=== PATIENT | male | born 1945 | race Caucasian/White ===

== ENCOUNTER → 2019-12-14 11:40 | Outpatient (BNVA) | payer OTHER, SELFPAY | PROVIDERS: PCP Internal Medicine; Referring Provider Internal Medicine; Visit Provider Internal Medicine | DX: I26.99 Other pulmonary embolism without acute cor pulmonale (principal); Z51.81 Encounter for therapeutic drug level monitoring; Z79.01 Long term (current) use of anticoagulants | CPT/HCPCS: 85610; 99211 ==

== ENCOUNTER 2020-03-27 10:57 | Outpatient (REF) | payer OTHER, SELFPAY ==
[2020-03-27 13:14] LABS: Prostate Specific Antigen 0.13 ng/mL (<0.05-4.0)
== END 2020-03-27 10:58 | disposition home or self-care (01) ==
LOC: HO.HSHHMC 10:57
PROVIDERS: Visit Provider Physician Assistant Surgical
DX: C61 Malignant neoplasm of prostate (principal)
CPT/HCPCS: 36415; 84153

== ENCOUNTER 2020-09-23 10:24 | Outpatient (REF) | payer OTHER, SELFPAY ==
[2020-09-23 12:20] LABS: Prostate Specific Antigen 0.11 ng/mL (<0.05-4.0)
== END 2020-09-23 10:25 | disposition home or self-care (01) ==
LOC: HO.10HDLNP 10:24
PROVIDERS: Visit Provider Urology
DX: C61 Malignant neoplasm of prostate (principal)
CPT/HCPCS: 84153

== ENCOUNTER 2020-12-16 14:46 | Outpatient (REF) | payer OTHER, SELFPAY ==
--- NOTE | ~2020-12-16 | US_ITS ---
EXAMINATION: US VENOUS ULTRASOUND WITH DOPPLER LOWER EXTREMITY, LEFT CLINICAL INFORMATION: Swelling COMPARISON: None TECHNIQUE: Ultrasound of the deep veins is performed from the hip to the calf with compression sonography and color and pulse Doppler assessment. Spectral analysis with color-flow imaging is performed. FINDINGS: There is normal venous compression and respiratory variation and augmented flow. The visualized common femoral vein, superficial femoral vein, profunda femoral vein, popliteal vein, and the trifurcation region shows no evidence of deep venous thrombosis. There is no popliteal fossa cyst. US/US venous duplex LE LT IMPRESSION: No DVT demonstrated in the left lower extremity.
== END 2020-12-16 14:47 | disposition home or self-care (01) ==
LOC: HO.US 14:46
PROVIDERS: PCP Internal Medicine; Visit Provider Internal Medicine
DX: R60.0 Localized edema (principal)
CPT/HCPCS: 93971

== ENCOUNTER 2021-02-02 11:59 | Outpatient (REF) | payer OTHER, SELFPAY ==
--- NOTE | ~2021-02-02 | XR_ITS ---
EXAMINATION: XR knee LT 2V, XR knee standing BI CLINICAL INFORMATION: Reason for Exam M25.569 - Pain in unspecified knee COMPARISON: None available at the time of this dictation. TECHNIQUE: frontal, lateral, tunnel and patella sunrise views FINDINGS: BONES: No fracture or dislocation is present. JOINTS: Narrowing of joint spaces and developed osteophytes from the edges of articular surfaces suggest degenerative osteoarthritis. SOFT TISSUE: There are vascular calcifications. XR/XR knee LT 2V IMPRESSION: Moderate degenerative osteoarthritis involving medial more than lateral compartments right more than left knee. No significant knee joint effusion. There are vascular calcifications.
--- NOTE | ~2021-02-02 | XR_ITS ---
EXAMINATION: XR knee LT 2V, XR knee standing BI CLINICAL INFORMATION: Reason for Exam M25.569 - Pain in unspecified knee COMPARISON: None available at the time of this dictation. TECHNIQUE: frontal, lateral, tunnel and patella sunrise views FINDINGS: BONES: No fracture or dislocation is present. JOINTS: Narrowing of joint spaces and developed osteophytes from the edges of articular surfaces suggest degenerative osteoarthritis. SOFT TISSUE: There are vascular calcifications. XR/XR knee standing BI IMPRESSION: Moderate degenerative osteoarthritis involving medial more than lateral compartments right more than left knee. No significant knee joint effusion. There are vascular calcifications.
--- NOTE | ~2021-02-02 | XR_ITS ---
EXAMINATION: XR PELVIS CLINICAL INFORMATION: Pain COMPARISON: 09/05/2018 TECHNIQUE: AP view of the pelvis. FINDINGS: No acute fracture or dislocation. Femoral heads are spherical. Small bilateral acetabular marginal osteophytes. Mild bilateral sacroiliac arthrosis. Degenerative changes of the imaged lower lumbar spine. No suspicious osseous lesions. Soft tissues unremarkable. XR/XR pelvis 1-2V IMPRESSION: No acute findings. Degenerative changes as described.
== END 2021-02-02 12:00 | disposition home or self-care (01) ==
LOC: HO.HOSX 11:59
PROVIDERS: PCP Internal Medicine; Visit Provider Orthopaedic Surgery
DX: M17.0 Bilateral primary osteoarthritis of knee (principal); M25.552 Pain in left hip
CPT/HCPCS: 72170; 73560; 73565

== ENCOUNTER 2021-04-14 05:41 | Outpatient (REF) | payer OTHER, SELFPAY ==
[2021-04-14 10:53] LABS: MANUAL DIFF FLAG NO
[2021-04-14 10:56] LABS: Basophils Absolute Auto 0.1 X10*3/uL (0.0-0.2); Basophils Percent Auto 0.7 % (0-2); Eosinophils Absolute Auto 0.2 X10*3/uL (0.0-0.4); Eosinophils Percent Auto 2.2 % (0-4); Hematocrit 48.1 % (42.0-52.0); Hemoglobin 15.7 g/dl (14.0-18.0); Imm Gran Abs Auto 0.02 X10*3/uL (0.00-0.03); Imm Gran Pct Auto 0.3 % (0.0-0.4); Lymphocytes Absolute Auto 1.4 X10*3/uL (1.2-4.9); Lymphocytes Percent Auto 21.2 % (20-40); Mean Corpuscular HGB Conc 32.6 g/dl (31.0-36.0); Mean Corpuscular Hemoglobin 31.2 pg (27.0-33.0); Mean Corpuscular Volume 95.4 fL (80.0-98.0); Mean Platelet Volume 10.3 fL (9.4-12.4); Monocytes Absolute Auto 0.5 X10*3/uL (0.1-1.2); Monocytes Percent Auto 7.5 % (2-11); Neutrophils Absolute Auto 4.6 x10*3/uL (2.0-8.3); Neutrophils Percent Auto 68.1 % (45-73); Platelet Count 272 X10*3/uL (160-400); Red Blood Count 5.04 X10*6/uL (4.60-5.80); Red Cell Distribution Width 13.2 % (11.0-16.0); White Blood Count 6.7 X10*3/uL (4.8-10.8)
[2021-04-14 11:31] LABS: Alanine Aminotransferase 14 U/L (0-40); Alkaline Phosphatase 84 U/L (39-117); Anion Gap 10 (12-20); Aspartate Amino Transferase 16 U/L (5-37); Blood Urea Nitrogen 15 mg/dL (9-16); Calcium 9.4 mg/dL (8.4-10.2); Carbon Dioxide 28 mmol/L (22-29); Chloride 106 mmol/L (96-108); Cholesterol 196 mg/dL; Estimated Glomerular Filt Rate 57; Glucose Fasting 90 mg/dL (60-99); HDL Cholesterol 44 mg/dL; LDL Cholesterol Calculated 133 mg/dl; Potassium 4.3 mmol/L (3.3-5.1); Sodium 140 mmol/L (135-145); Total Protein 6.6 g/dL (6.5-8.0); Triglycerides 99 mg/dL
[2021-04-14 11:51] LABS: Prostate Specific Antigen Scr 0.14 ng/mL (<0.05-4.0); Thyroid Stimulating Hormone 1.59 uIU/mL (0.32-4.0)
== END 2021-04-14 05:42 | disposition home or self-care (01) ==
LOC: HO.HSH 05:41
PROVIDERS: Psychiatry & Neurology Child & Adolescent Psychiatry; Visit Provider Internal Medicine
DX: Z00.00 Encounter for general adult medical examination without abnormal findings (principal); Z13.0 Encounter for screening for diseases of the blood and blood-forming organs and certain disorders involving the immune mechanism; Z12.5 Encounter for screening for malignant neoplasm of prostate; C61 Malignant neoplasm of prostate
CPT/HCPCS: 36415; 80053; 80061; 84153; 84443; 85025

== ENCOUNTER → 2021-04-24 11:25 | Outpatient (BNVA) | payer OTHER, SELFPAY | PROVIDERS: PCP Internal Medicine; Visit Provider Orthopaedic Surgery | DX: M17.12 Unilateral primary osteoarthritis, left knee (principal) | CPT/HCPCS: 20610; J1100 ==

== ENCOUNTER 2021-05-12 13:00 | Outpatient (RCR) | payer OTHER, SELFPAY ==
--- NOTE | 2021-02-17 15:44 | MHC.PT.EP ---
[facility] [place] Office [place] Office [place] Office [address] Ina Vaughn [address] [phone] F: [phone] F: [phone] F: [phone] F: [phone] Physical Therapy Plan of Care Date of Evaluation: Date of Surgery: n/a Diagnosis: UNILATERAL PRIMARY OA, ,EFT KNEE; LEFT PFJ OA TAPING FOR TENNIS; MARC FOR GLUTE AND CORE STRENGTHENING; PF ARTHRITIS OF LEFT KNEE Assessment: 75 YO MALE REF TO PT W LEFT PF JT/ UNILAT PRIMARY OA LEFT KNEE- EXACERBATED IN DECEMBER 2020 AFTER PLAYING TENNIS DURING THE SUMMER. 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 FUNCTIONAL LIMITATIONS INCLUDE DECR SLEEP, DECR MALENA TO STANDING, PROLONGED SITTING, TENNIS AND RUNNING DUE TO LEFT KNEE PAIN. OBJECTIVE FINDINGS INCLUDE DECR TERMINAL EXTEN IN BYRON KNEES, SIGNIF FLEXIBILITY AND STRENGTH DEFICITS IN BYRON HIP ROTATORS, (+) PF IRRIT LEFT KNEE, AND DECR LEFT LATERAL PATELLAR MOB. Pt IS A GREAT CANDIDATE FOR PT TO ADDRESS THE ABOVE FINDINGS OF LEFT PFPS AND BYRON HIP HYPOMOBILITY, PAIN MGMT, DEV HEP AND SELF-SX MGMT/ SELF TAPING NEEDED TO GUIDE HIM IN RETURNING TO TENNIS, ETC. Frequency and Duration: The patient will be seen 2 x WK x 5 WKS Short Term Goals: Pt'S LEFT KNEE PAIN DECR TO 2-3/10 AND FREQ DECR BY 60% IN 2 WKS Pt DEMON INCR AROM BYRON HIP IR/ER AND BYRON KNEE EXT IN 3 WKS Pt REPORTS ABLE TO SLEEP THRU THE NIGHT W/O LEFT KNEE SXS IN 3 WKS Custodial Goals: Pt INDEP W HEP/ STRENGTH PROGR AND SELF SX MGMT TECHN IN 5 WKS Pt INCR FUNCT MOB MALENA (TENNIS) EVIDENT W IMPROVED LEFI SCORE BY 8 POINTS (53/80 AT EVAL) IN 5 WKS Pt INDEP SELF TAPING LEFT KNEE (EV OR NJ) FOR TENNIS IN 5 WKS Treatment Plan: Modalities to reduce pain, spasms and effusion. Manual therapy to restore motion and function. Therapeutic exercise to improve strength and flexibility. Neuromuscular re-education for posture and balance. Therapeutic activities to return to functional activities of daily living. Electronically signed by: Marcia Crowley PT Please sign and return to therapist. Thank you for your referral.
== END 2021-06-30 15:27 | disposition home or self-care (01) ==
LOC: HO.PT 13:00
PROVIDERS: PCP Internal Medicine; Visit Provider Orthopaedic Surgery
DX: M17.12 Unilateral primary osteoarthritis, left knee (principal)
CPT/HCPCS: 97110; 97112; 97140; 97162; 97530

== ENCOUNTER 2021-05-22 07:59 | Outpatient (REF) | payer OTHER, SELFPAY ==
--- NOTE | ~2021-05-22 | MR_ITS ---
EXAMINATION: MR LUMBAR SPINE WITHOUT CONTRAST CLINICAL INFORMATION: Radiculopathy, lumbar region COMPARISON: None TECHNIQUE: MRI of the lumbar spine was obtained using routine sequences without contrast. FINDINGS: The lumbar vertebral bodies maintain normal heights and alignment. The disc heights are preserved. No bone marrow edema is seen. The distal spinal cord appears normal. The conus medullaris terminates normally at the L1 level. The extraspinal soft tissues are within normal limits. SPINAL LEVELS: L1-L2: No posterior disc abnormality. No spinal canal or neural foraminal stenosis. L2-L3: Disc bulging with ligamentum flavum infolding moderate facet arthropathy. Prominent epidural fat. Moderate spinal canal stenosis. Left foraminal protrusion compresses the extraforaminal left L2 nerve root. L3-L4: Disc bulging asymmetric to the left with ligamentum flavum infolding, facet arthropathy, and prominent dorsal epidural fat resulting in moderate spinal canal stenosis with compression of both traversing L4 nerve roots. Left foraminal protrusion mildly compresses the exiting left L3 nerve root. Right neural foramen demonstrates mild to moderate narrowing. L4-L5: Disc bulging with ligamentum flavum infolding and severe facet arthropathy resulting in moderate spinal canal stenosis with bilateral subarticular stenosis. Moderate to severe bilateral neural foraminal stenosis with compression of both exiting L4 nerve roots. L5-S1: Disc bulging with moderate facet arthropathy. No spinal canal stenosis. Prominent left lateral osteophyte contacts the extraforaminal L5 nerve root segment. MR/MR lumbar spine wo con IMPRESSION: At L2-L3 there is moderate spinal canal stenosis. Left foraminal protrusion compresses the extraforaminal left L2 nerve root segment. At L3-L4 there is moderate spinal canal stenosis with compression of both traversing L4 nerve roots. Left foraminal protrusion compresses the exiting left L3 nerve root. Mild to moderate right neural foraminal stenosis. L4-L5 there is moderate spinal canal stenosis with bilateral subarticular stenosis and moderate to severe bilateral neural foraminal stenosis with compression of both exiting L4 nerve roots.
== END 2021-05-22 08:00 | disposition home or self-care (01) ==
LOC: HO.MRI 07:59
PROVIDERS: Visit Provider Internal Medicine
DX: M54.16 Radiculopathy, lumbar region (principal)
CPT/HCPCS: 72148

== ENCOUNTER 2021-11-30 10:04 | Outpatient (REF) | payer OTHER, SELFPAY ==
[2021-11-30 16:03] LABS: Prostate Specific Antigen 0.17 ng/mL (<0.05-4.0)
== END 2021-11-30 10:05 | disposition home or self-care (01) ==
LOC: HO.HSHHMC 10:04
PROVIDERS: Visit Provider Urology
DX: Z12.5 Encounter for screening for malignant neoplasm of prostate (principal); C61 Malignant neoplasm of prostate
CPT/HCPCS: 36415; 84153

== ENCOUNTER 2021-12-22 12:23 | Outpatient (REF) | payer OTHER, SELFPAY ==
[2021-12-22 13:49] LABS: MANUAL DIFF FLAG NO
[2021-12-22 13:54] LABS: Basophils Absolute Auto 0.1 X10*3/uL (0.0-0.2); Basophils Percent Auto 0.6 % (0-2); Eosinophils Absolute Auto 0.1 X10*3/uL (0.0-0.4); Eosinophils Percent Auto 0.8 % (0-4); Hematocrit 47.1 % (42.0-52.0); Hemoglobin 15.8 g/dl (14.0-18.0); Imm Gran Abs Auto 0.04 X10*3/uL (0.00-0.03); Imm Gran Pct Auto 0.5 % (0.0-0.4); Lymphocytes Absolute Auto 1.6 X10*3/uL (1.2-4.9); Lymphocytes Percent Auto 20.1 % (20-40); Mean Corpuscular HGB Conc 33.5 g/dl (31.0-36.0); Mean Corpuscular Hemoglobin 30.9 pg (27.0-33.0); Mean Corpuscular Volume 92.2 fL (80.0-98.0); Mean Platelet Volume 10.2 fL (9.4-12.4); Monocytes Absolute Auto 0.7 X10*3/uL (0.1-1.2); Monocytes Percent Auto 8.4 % (2-11); Neutrophils Absolute Auto 5.4 x10*3/uL (2.0-8.3); Neutrophils Percent Auto 69.6 % (45-73); Platelet Count 264 X10*3/uL (160-400); Red Blood Count 5.11 X10*6/uL (4.60-5.80); Red Cell Distribution Width 12.9 % (11.0-16.0); White Blood Count 7.7 X10*3/uL (4.8-10.8)
[2021-12-22 14:26] LABS: Alanine Aminotransferase 14 U/L (0-40); Albumin Level 4.1 g/dL (3.5-5.0); Alkaline Phosphatase 90 U/L (39-117); Anion Gap 16 (12-20); Aspartate Amino Transferase 16 U/L (5-37); Blood Urea Nitrogen 13 mg/dL (9-16); Calcium 9.5 mg/dL (8.4-10.2); Carbon Dioxide 24 mmol/L (22-29); Chloride 106 mmol/L (96-108); Estimated Glomerular Filt Rate 59; Glucose Random 84 mg/dL (60-115); Potassium 4.5 mmol/L (3.3-5.1); Sodium 141 mmol/L (135-145); Total Protein 6.6 g/dL (6.5-8.0)
== END 2021-12-22 12:24 | disposition home or self-care (01) ==
LOC: HO.10HDL 12:23
PROVIDERS: Nurse Practitioner Family; Visit Provider Internal Medicine
DX: Z13.0 Encounter for screening for diseases of the blood and blood-forming organs and certain disorders involving the immune mechanism (principal); C61 Malignant neoplasm of prostate
CPT/HCPCS: 36415; 80053; 85025

== ENCOUNTER 2021-12-23 10:06 | Outpatient (REF) | payer OTHER, SELFPAY ==
--- NOTE | ~2021-12-23 | US_ITS ---
EXAMINATION: US ABDOMEN COMPLETE CLINICAL INFORMATION: Status post cholecystectomy, right upper quadrant pain. COMPARISON: Ultrasound abdomen complete 01/04/2019 and 11/18/2017. CT abdomen and pelvis with contrast 01/04/2019. TECHNIQUE: Real-time imaging of the abdominal viscera. Technically limited study secondary to bowel gas. FINDINGS: PANCREAS: Visualized portions unremarkable. ABDOMINAL AORTA: Visualized portions unremarkable. INFERIOR VENA CAVA: Visualized portions unremarkable. LIVER: Unremarkable. GALLBLADDER: Surgically absent. COMMON BILE DUCT: Normal in caliber measuring 0.6 cm in diameter. RIGHT KIDNEY: 11.9 cm. Unremarkable. LEFT KIDNEY: 11.1 cm. A peripelvic anechoic cysts are seen. A business development representative cyst in the lower pole measures 2.3 cm. No hydronephrosis or nephrolithiasis. Color Doppler showed no abnormal vascular flow. SPLEEN: 7.8 cm. Unremarkable. FREE FLUID: None. US/US abdomen complete IMPRESSION: Peripelvic left renal cysts demonstrate benign features correlating with previous CT findings. No other significant abnormality.
== END 2021-12-23 10:07 | disposition home or self-care (01) ==
LOC: HO.US 10:06
PROVIDERS: PCP Internal Medicine; Visit Provider Internal Medicine
DX: R10.11 Right upper quadrant pain (principal)
CPT/HCPCS: 76700

== ENCOUNTER 2022-01-06 14:18 | Outpatient (REF) | payer OTHER, SELFPAY ==
--- NOTE | ~2022-01-06 | CT_ITS ---
EXAMINATION: CT ABDOMEN AND PELVIS WITH CONTRAST CLINICAL INFORMATION: Abdominal pain COMPARISON: Previous CT of the abdomen and pelvis December 2018, and ultrasound December 2021 TECHNIQUE: Multidetector volumetric images were obtained from the superior aspect of the liver through the pubic symphysis following administration 85 mL of Omnipaque 350 intravenous contrast. Sagittal and coronal reformatted images were obtained on the technologist's workstation. Oral contrast: Yes This CT examination was performed using dose optimization techniques as appropriate, variously including the following: *Automated exposure control *Adjustment of mA and/or kV according to patient size (this includes techniques or standardized protocols for targeted exams where dose is matched to indication/reason for exam; i.e. extremities or head) *Use of iterative reconstruction technique DLP: 342 mGy-cm FINDINGS: LUNG BASES: The visualized lung bases are unremarkable. LIVER, GALLBLADDER, AND BILIARY TREE: The liver is normal in size, shape, and attenuation. No focal hepatic lesion or biliary ductal dilatation is present. The gallbladder has been removed. PANCREAS: Unremarkable. SPLEEN: Unremarkable. ADRENAL GLANDS: Unremarkable. KIDNEYS AND URETERS: The kidneys are normal in size, shape, and attenuation. Left renal peripelvic cysts. Small health in the lower pole left kidney probably representing a vascular lesion. Small cortical cyst in the lower pole of the right. Follow-up needed. No hydronephrosis, hydroureter, or calculi seen. No perinephric stranding. BLADDER: Bladder. There is question of bladder wall thickening. GASTROINTESTINAL TRACT: There is mild diverticulosis of the colon. There is no evidence of diverticulitis. There is prominent vasa recta adjacent to the distal colon and there may be mild wall thickening versus changes due to underdistention of the left colon and sigmoid colon. Appearance is questionable for mild colitis. Small and large bowel is otherwise unremarkable. The appendix is not identified. There are no inflammatory changes in the right lower quadrant. Stomach is normal. ABDOMINAL WALL: Tiny umbilical hernia containing fat. LYMPH NODES: Normal. VASCULAR: Unremarkable. PELVIC VISCERA: The prostate gland has been removed. OSSEOUS STRUCTURES: Arthritis of the lumbar spine and hip joints. CT/CT abdomen pelvis w IV con IMPRESSION: Diverticulosis of the colon. No evidence of diverticulitis. Question mild colitis left colon and sigmoid colon. Bladder not optimally distended. Question mild diffuse bladder wall thickening. Bilateral renal cysts. Fleischner guidelines were followed.
[2022-01-06] MEDS: iohexoL 350 MG/ML 100 ML INFUS..BTL IV (14:58)
== END 2022-01-06 14:19 | disposition home or self-care (01) ==
LOC: HO.CT 14:18
PROVIDERS: PCP Internal Medicine; Visit Provider Internal Medicine
DX: R10.9 Unspecified abdominal pain (principal)
CPT/HCPCS: 74177; Q9967

== ENCOUNTER 2022-02-12 10:13 | Outpatient (REF) | payer OTHER, SELFPAY ==
[2022-02-12 12:34] LABS: Basophils Absolute Auto 0.1 X10*3/uL (0.0-0.2); Basophils Percent Auto 0.9 % (0-2); Eosinophils Absolute Auto 0.1 X10*3/uL (0.0-0.4); Eosinophils Percent Auto 1.5 % (0-4); Hematocrit 46.4 % (42.0-52.0); Hemoglobin 15.2 g/dl (14.0-18.0); Imm Gran Abs Auto 0.03 X10*3/uL (0.00-0.03); Imm Gran Pct Auto 0.4 % (0.0-0.4); Lymphocytes Absolute Auto 1.3 X10*3/uL (1.2-4.9); Lymphocytes Percent Auto 18.9 % (20-40); MANUAL DIFF FLAG SCAN; Mean Corpuscular HGB Conc 32.8 g/dl (31.0-36.0); Mean Corpuscular Hemoglobin 30.3 pg (27.0-33.0); Mean Corpuscular Volume 92.6 fL (80.0-98.0); Monocytes Absolute Auto 0.6 X10*3/uL (0.1-1.2); Monocytes Percent Auto 8.4 % (2-11); Neutrophils Absolute Auto 4.8 x10*3/uL (2.0-8.3); Neutrophils Percent Auto 69.9 % (45-73); PLT CLUMP 1; Red Blood Count 5.01 X10*6/uL (4.60-5.80); Red Cell Distribution Width 13.6 % (11.0-16.0); SCAN SMEAR FLAG 1
[2022-02-12 12:59] LABS: White Blood Count 6.8 X10*3/uL (4.8-10.8)
[2022-02-12 13:01] LABS: SLIDE REVIEW VERIFIED
[2022-02-12 13:12] LABS: Erythrocyte Sedimentation Rate 8 MM/HR (0-15)
[2022-02-12 13:33] LABS: C Reactive Protein 0.18 mg/dL (< or = 0.50)
[2022-02-15 12:28] LABS: Immunoglobulin A 198 mg/dL (70-320)
[2022-02-16 12:43] LABS: Gliadin Deamidated IgA Ab <1.0 U/mL; Gliadin Deamidated IgG Ab <1.0 U/mL; Transglutaminase Ab IgG <1.0 U/mL; Transglutaminase IgA <1.0 U/mL
[2022-02-17 13:22] LABS: Endomysial IgA Antibody Negative (Negative)
== END 2022-02-12 10:14 | disposition home or self-care (01) ==
LOC: HO.HSHHMC 10:13
PROVIDERS: Internal Medicine; Visit Provider Internal Medicine
DX: R10.84 Generalized abdominal pain (principal)
CPT/HCPCS: 36415; 82784; 85025; 85652; 86140; 86231; 86258; 86364

== ENCOUNTER 2022-10-01 11:36 | Outpatient (REF) | payer OTHER, SELFPAY ==
[2022-10-01 14:49] LABS: Prostate Specific Antigen 0.25 ng/mL (<0.05-4.0)
== END 2022-10-01 11:37 | disposition home or self-care (01) ==
LOC: HO.HSHHMC 11:36
PROVIDERS: Visit Provider Urology
DX: Z12.5 Encounter for screening for malignant neoplasm of prostate (principal); C61 Malignant neoplasm of prostate
CPT/HCPCS: 36415; 84153

== ENCOUNTER 2022-10-28 11:35 | Outpatient (AMB) | payer OTHER, SELFPAY ==
[2022-10-28 11:37] VITALS: BP 128/70; PULSE 78; O2SAT 97; BMI 24.4
--- NOTE | 2022-10-28 11:37 | A.OFFPC_ITS ---
Vital Signs 10/28/22 11:37 Height 5 ft 9 in Weight 165 lb 2 oz BMI 24.4 BP 128/70 Blood Pressure Location Lt brachial Position Sitting Pulse 78 Pulse Source Pulse Oximeter Pulse Oximetry (%) 97 Oxygen Delivery Method Room Air Intake Visit Reasons: claudication of the right leg Allergies morphine [MORPHINE] Adverse Reaction (Intermediate, Verified 10/28/22 11:41) N/V, shortness of breath sulfamethoxazole [From BACTRIM] Adverse Reaction (Intermediate, Verified 10/28/22 11:41) N/V trimethoprim [From BACTRIM] Adverse Reaction (Intermediate, Verified 10/28/22 11:41) N/V Sulfa (Sulfonamide Antibiotics) Adverse Reaction (Unknown, Verified 10/28/22 11:41) nausea and vomiting Medication List - Last Reconciled 10/28/22 by Cristofer Deng MD doxepin 6 mg PO BEDTIME PRN famotidine 20 mg PO DAILY lorazepam 1.5 mg (3 x 0.5 mg) PO BEDTIME PRN temazepam 15 mg PO BEDTIME PRN Tobacco use date assessed: 10/28/22 Dental Screening Dental Screen Date: 10/28/22 Did you have a dental visit in the last 12 months?: Yes Did you have a dental problem in the last 6 months where you did not have access to dental care?: No Was dental information given to patient?: Patient has dentist HPI claudication of the right leg HPI Details intermittent claudication right calf for about a month [facility] Medical History Current use of anticoagulant therapy Lumbar radiculopathy Prostate cancer Surgical History History of cholecystectomy History of prostatectomy Social History Housing: House Patient Tobacco Use Status: Never used Tobacco e-Cigarette/Vaping Use: Never Used Second Hand Smoke Exposure: No service: No Current occupational status: retired Cognitive needs: No Hearing needs: No Vision needs: No Questionnaire PHQ-9 Over the last 2 weeks, how often have you been bothered by any of the following problems? 1. Little interest or pleasure in doing things: not at all 2. Feeling down, depressed, or hopeless: not at all 3. Trouble falling or staying asleep, or sleeping too much: not at all 4. Feeling tired or having little energy: not at all 5. Poor appetite or overeating: not at all 6. Feeling bad about yourself - or that you are a failure or have let yourself or your family down: not at all 7. Trouble concentrating on things, such as reading the newspaper or watching television: not at all 8. Moving or speaking so slowly that other people could have noticed. Or the opposite - being so fidgety or restless that you have been moving around a lot more than usual: not at all 9. Thoughts that you would be better off or of hurting yourself in some way: not at all Total score: 0 Depression Screening Interpretation: Negative 67024 - PHQ-9 Billing: Yes Source: Developed by Drs. Michael Fontaine, Eliza Cuevas, Nirav Winchester and colleagues, with an educational lavinia from [employer]. Thrive Questionnaire Date Thrive assessed: 03/29/22 I am a: Patient What is your living situation today?: I have a steady place to live Within the past 12 months, did the food you bought not last and you didn't have the money to get more?: Never true Within the past 12 months, did you worry whether your food would run out before you got money to buy more?: Never true Currently or been in a relationship where the following occur: no concerns reported AUDIT C Alcohol Use Questionnaire (AUDIT-C) 1. How often do you have a drink containing alcohol?: 4 or more times a week 2. How many drinks containing alcohol do you have on a typical day when you are drinking?: 1 or 2 3. How often do you have six or more drinks on one occasion?: Never Total Score: 4 Score Reviewed/Action Taken: Yes GARY-7 AMB Questionnaire GARY-7 Date GARY - 7 assessed: 03/29/22 Feeling nervous, anxious, or on edge: 0 = Not at all Not being able to stop or control worryin = Not at all Worrying too much about different things: 0 = Not at all Trouble relaxin = Not at all Being so restless that it is hard to sit still: 0 = Not at all Becoming easily annoyed or irritable: 0 = Not at all Feeling afraid as if something awful might happen: 0 = Not at all Total GARY-7 score (0-4 normal; 5-9 mild; 10-14 moderate; 15-21 severe): 0 Source: Developed by Drs. Michael Fontaine, Eliza Cuevas, Nirav Winchester and colleagues, with an educational lavinia from [employer]. GARY-7 Assessment Billing GARY-7 Assessment Tool: GARY-7 Assessment 65549 Review of Systems Const Denies chills, Denies headache(s) and Denies weight loss ENT Denies headache(s) Card Denies chest pain, Denies syncope, Denies irregular heart rhythm and Denies dyspnea Resp Denies chest congestion, Denies cough and Denies dyspnea GI Denies abdominal pain, Denies change in stool character, Denies nausea and Denies vomiting Musc Denies deformity and Denies joint swelling Neuro Denies syncope and Denies headache(s) Physical exam (Primary Care) Vital Signs: Last Vital Signs Pulse 78 10/28/22 11:37 BP 128/70 10/28/22 11:37 Pulse Ox 97 10/28/22 11:37 Oxygen Delivery Method Room Air 10/28/22 11:37 BMI result Body Mass Index 24.4 Tobacco/Smoking Status: Tobacco use Status Tobacco use date assessed 10/28/22 10/28/22 11:42 Patient Tobacco Use Status Never used Tobacco 10/28/22 11:38 e-Cigarette/Vaping Use Never Used 10/28/22 11:38 PHQ-9: PHQ-9 Score PHQ-9: Total score 0 10/28/22 11:42 Depression Screening Interpretation: Negative Thrive Assessment: Date of Thrive Assessment Date Thrive assessed 03/29/22 10/28/22 11:38 Currently or been in a relationship where the following occur: no concerns reported Const General: cooperative, comfortable and no acute distress Neck Neck: Yes normal visual inspection Chest Chest palpation & inspection: normal inspection of the chest GI Inspection: Yes normal to inspection Extrem Other: decreased pedal pulses right foot Assessment and Plan Assessment & Plan (1) Intermittent claudication: Code(s): I73.9 - Peripheral vascular disease, unspecified Plan: arterial duplex scan Orders: Orders US arterial duplex LE RT Today I73.9 - Peripheral vascular disease, unspecified Medications: Refilled lorazepam 1.5 mg (3 x 0.5 mg) PO BEDTIME PRN 90 tabs 3RF anxiety Coding Level of Care Code Est Pt Level 3 (23281) Diagnoses Intermittent claudication I73.9 Additional Codes GARY-7 Assessment Billing - GARY-7 Assessment Tool: GARY-7 Assessment [id number] ([id number])
== END 2022-10-28 12:06 | disposition home or self-care (01) ==
PROVIDERS: PCP Internal Medicine; Visit Provider Internal Medicine
DX: I73.9 Peripheral vascular disease, unspecified (principal)
CPT/HCPCS: 99213

== ENCOUNTER 2022-11-04 13:36 | Outpatient (REF) | payer OTHER, SELFPAY ==
--- NOTE | ~2022-11-04 | US_ITS ---
EXAMINATION: US LOWER EXTREMITY DUPLEX, RIGHT CLINICAL INFORMATION: Peripheral vascular disease TECHNIQUE: Real-time ultrasound and Doppler techniques (integrating B-mode 2-D vascular images, Doppler spectral analysis and color flow Doppler imaging) were utilized to interrogate the right lower extremities. COMPARISON: None FINDINGS: RIGHT LEG: Common femoral artery: 173 cm/s, Triphasic Profunda femoris artery: 143 cm/s, biphasic Superficial femoral artery (proximal): 155 cm/s, Triphasic Superficial femoral artery (mid): 83 cm/s, Triphasic Superficial femoral artery (distal): 69 cm/s, monophasic Popliteal artery: 53 cm/s, monophasic Posterior tibial artery: 25 cm/s, monophasic Peroneal artery: 47 cm/s, monophasic US/US arterial duplex LE RT IMPRESSION: Mild lower extremity peripheral vascular disease, particularly in the femoral arteries.
== END 2022-11-04 13:37 | disposition home or self-care (01) ==
LOC: HO.US 13:36
PROVIDERS: PCP Internal Medicine; Visit Provider Internal Medicine
DX: I73.9 Peripheral vascular disease, unspecified (principal)
CPT/HCPCS: 93926

== ENCOUNTER 2023-04-04 11:43 | Outpatient (REF) | payer OTHER, SELFPAY ==
[2023-04-04 14:41] LABS: Prostate Specific Antigen 0.28 ng/mL (<0.05-4.0)
== END 2023-04-04 11:44 | disposition home or self-care (01) ==
LOC: HO.10HDL 11:43
PROVIDERS: Visit Provider Urology
DX: Z12.5 Encounter for screening for malignant neoplasm of prostate (principal); C61 Malignant neoplasm of prostate
CPT/HCPCS: 36415; 84153

== ENCOUNTER 2023-05-27 14:54 | Outpatient (REF) | payer OTHER, SELFPAY ==
--- NOTE | ~2023-05-27 | MR_ITS ---
EXAMINATION: MR LUMBAR SPINE WITH AND WITHOUT CONTRAST CLINICAL INFORMATION: Worsening stenosis, right-sided nerve root impingement. COMPARISON: MRI lumbar spine 05/22/2021. TECHNIQUE: MRI of the lumbar spine was obtained using routine sequences with and without the administration of intravenous contrast. Intravenous Gadavist 7.5 mL was administered without immediate complication. FINDINGS: This examination assumes the presence of 5 lumbar type vertebral bodies. For the purposes of this examination, the L5-S1 intervertebral disc space is visualized on axial series 6 image 23. The normal lumbar lordosis is preserved. Trace anterolisthesis of L4-L5 and L5-S1. Lumbar vertebral body heights are maintained. No expansile or destructive osseous lesion. Left dorsal intramuscular T2 hyperintense signal is likely related to denervation. The conus medullaris and cauda equina nerve roots are unremarkable; the conus terminates at the level of L1. No abnormal enhancement along the cauda equina nerve roots. L1-L2: Facet arthropathy. The spinal canal and neural foramen are not significantly narrowed. L2-L3: Disc bulge with left foraminal/far lateral disc protrusion. Facet arthropathy with ligamentum flavum redundancy. There is asymmetric narrowing of the left lateral recess and moderate spinal canal stenosis that appears comparable to the prior examination. Ujjx-vw-jaqzxpps left neural foraminal stenosis with extraforaminal nerve root impingement that appears comparable to prior. Mild narrowing of the right neural foramen. L3-L4: Disc bulge and osteophytic ridging with facet arthropathy and ligamentum flavum redundancy. There is moderate spinal canal stenosis with narrowing of the lateral recesses that appears comparable to the prior study. A left foraminal disc protrusion contributes to moderate left neural foraminal stenosis with exiting nerve root abutment. Moderate narrowing of the right neural foramen appears comparable to prior. L4-L5: Interval left hemilaminectomy. Advanced facet arthropathy. Disc bulge extending into the bilateral neural foramen. There is narrowing of lateral recesses. Improvement in previously visualized moderate canal stenosis. Bwrlffax-qq-tacxka right neural foraminal stenosis appears increased compared to prior with exiting nerve root impingement. Persistent mjwxdfgi-au-zwgwov narrowing of the left neural foramen. L5-S1: Advanced facet arthropathy. Disc bulge. The spinal canal is not significantly narrowed. The neural foramen are patent. Redemonstrated abutment of the exiting left L5 nerve root by a left lateral osteophyte. Left renal cyst and additional T2 hyperintense foci in the bilateral kidneys are too small to fully characterize but likely represent cysts. MR/MR lumbar spine wo/w con IMPRESSION: Interval left hemilaminectomy at L4-L5 with associated left paraspinal musculature denervation edema. Interval improvement in previously visualized moderate canal stenosis at L4-L5. Increased rnupxfip-bi-cmcvoa right neural foraminal stenosis at L4-L5 with exiting nerve root impingement. Additional multilevel degenerative changes as described above appear comparable to prior including moderate canal stenosis at L2-L3.
[2023-05-27] MEDS: gadobutroL 7.5 ML VIAL IVPUSH (15:50)
== END 2023-05-27 14:55 | disposition home or self-care (01) ==
LOC: HO.MRI 14:54
PROVIDERS: PCP Internal Medicine; Visit Provider Physical Medicine & Rehabilitation
DX: M54.50 Low back pain, unspecified (principal); Z98.890 Other specified postprocedural states
CPT/HCPCS: 72158; A9585

== ENCOUNTER 2023-06-20 11:49 | Outpatient (REF) | payer OTHER, SELFPAY ==
[2023-06-20 13:52] LABS: Prostate Specific Antigen 0.32 ng/mL (<0.05-4.0)
== END 2023-06-20 11:50 | disposition home or self-care (01) ==
LOC: HO.10HDL 11:49
PROVIDERS: Visit Provider Urology
DX: Z12.5 Encounter for screening for malignant neoplasm of prostate (principal); C61 Malignant neoplasm of prostate
CPT/HCPCS: 36415; 84153

== ENCOUNTER 2023-06-27 13:13 | Outpatient (AMB) | payer OTHER, SELFPAY ==
[2023-06-27 13:15] VITALS: BP 146/60; PULSE 71; O2SAT 98; BMI 24.4
--- NOTE | 2023-06-27 13:15 | MHC.PC.OV ---
Vital Signs 06/27/23 13:15 Height 5 ft 9 in Weight 165 lb 0.8 oz BMI 24.4 BP 146/60 H Blood Pressure Location Lt brachial Position Sitting Pulse 71 Pulse Source Pulse Oximeter Pulse Oximetry (%) 98 Oxygen Delivery Method Room Air Intake Visit Reasons: Follow Up Intake Note: Patient is here to follow up Dish Person Required: No Allergies morphine [MORPHINE] Adverse Reaction (Intermediate, Verified 06/27/23 13:16) N/V, shortness of breath sulfamethoxazole [From BACTRIM] Adverse Reaction (Intermediate, Verified 06/27/23 13:16) N/V trimethoprim [From BACTRIM] Adverse Reaction (Intermediate, Verified 06/27/23 13:16) N/V Sulfa (Sulfonamide Antibiotics) Adverse Reaction (Unknown, Verified 06/27/23 13:16) nausea and vomiting Medication List - Last Reconciled 06/28/23 by Cristofer Deng MD daridorexant (Quviviq) 25 mg PO BEDTIME doxepin 6 mg PO BEDTIME PRN famotidine 20 mg PO DAILY lorazepam 1.5 mg (3 x 0.5 mg) PO BEDTIME PRN metoclopramide HCl (Reglan) 5 mg PO QIDACHS temazepam 15 mg PO BEDTIME PRN Tobacco use date assessed: 06/27/23 Fall risk assessment: No Falls in past year Last assessed Fall Risk: 06/27/23 Dental Screening Dental Screen Date: 06/27/23 HPI Follow Up HPI Details chronic back pain and radiculopathy; getting injections and may consider surgery in the future COUNT INCLUDES [facility] Medical History Current use of anticoagulant therapy Lumbar radiculopathy Prostate cancer Surgical History History of cholecystectomy History of prostatectomy Social History Housing: House Patient Tobacco Use Status: Never used Tobacco e-Cigarette/Vaping Use: Never Used Second Hand Smoke Exposure: No service: No Current occupational status: retired Cognitive needs: No Hearing needs: No Vision needs: No Questionnaire Thrive Questionnaire Date Thrive assessed: 06/27/23 AUDIT C Alcohol Use Questionnaire (AUDIT-C) 1. How often do you have a drink containing alcohol?: 4 or more times a week 2. How many drinks containing alcohol do you have on a typical day when you are drinking?: 1 or 2 3. How often do you have six or more drinks on one occasion?: Never Total Score: 4 Score Reviewed/Action Taken: Yes GARY-7 AMB Questionnaire GARY-7 Date GARY - 7 assessed: 06/27/23 Source: Developed by Drs. Michael Fontaine, Eliza Cuevas, Nirav Winchester and colleagues, with an educational lavinia from [employer]. Review of Systems Const Denies chills, Denies headache(s) and Denies weight loss ENT Denies headache(s) Card Denies chest pain, Denies syncope, Denies irregular heart rhythm and Denies dyspnea Resp Denies chest congestion, Denies cough and Denies dyspnea GI Denies abdominal pain, Denies change in stool character, Denies nausea and Denies vomiting Musc Denies deformity and Denies joint swelling Neuro Denies syncope and Denies headache(s) Physical exam (Primary Care) Vital Signs: Last Vital Signs Pulse 71 06/27/23 13:15 BP 146/60 H 06/27/23 13:15 Pulse Ox 98 06/27/23 13:15 Oxygen Delivery Method Room Air 06/27/23 13:15 BMI result Body Mass Index 24.4 Tobacco/Smoking Status: Tobacco use Status Tobacco use date assessed 06/27/23 06/27/23 13:16 Patient Tobacco Use Status Never used Tobacco 06/27/23 13:16 e-Cigarette/Vaping Use Never Used 06/27/23 13:16 Thrive Assessment: Date of Thrive Assessment Date Thrive assessed 06/27/23 06/27/23 13:16 Const General: cooperative, comfortable, no acute distress and alert Neck Neck: Yes no lymphadenopathy Thyroid: Thyroid normal Resp Effort & Inspection: normal respiratory effort Auscultation: clear to auscultation bilaterally Percussion: percussion normal Cardio Jugular venous distension: no JVD Palpation: normal PMI Rate: regular rate Rhythm: regular rhythm Heart sounds: S1 normal heart sound present and S2 normal heart sound present GI Inspection: Yes normal to inspection Palpation (GI): No hepatosplenomegaly present Skin General skin exam: no rashes or lesions noted Extrem General: Yes no clubbing, cyanosis or edema Assessment and Plan Assessment & Plan (1) Lumbar foraminal stenosis: Code(s): M48.061 - Spinal stenosis, lumbar region without neurogenic claudication Plan: stable; f/u pwe neuro Orders: Orders Complete Blood Count Auto Diff 06/27/23 Z13.0 - Encounter for screening for diseases of the blood and blood-forming organs and certain disorders involving the immune mechanism Comprehensive [place]. Panel Fast 06/27/23 Z13.9 - Encounter for screening, unspecified Lipid Panel 06/27/23 Z13.220 - Encounter for screening for lipoid disorders Thyroid Stimulating Hormone 06/27/23 Z13.29 - Encounter for screening for other suspected endocrine disorder Medications: New metoclopramide HCl (Reglan) 5 mg PO QIDACHS 30 tabs 2RF Coding Level of Care Code Est Pt Level 3 (95305) Diagnoses Lumbar foraminal stenosis M48.061
== END 2023-06-27 13:59 | disposition home or self-care (01) ==
PROVIDERS: PCP Internal Medicine; Visit Provider Internal Medicine
DX: M48.061 Spinal stenosis, lumbar region without neurogenic claudication (principal)
CPT/HCPCS: 99213

== ENCOUNTER 2023-12-27 13:18 | Outpatient (AMB) | payer OTHER, SELFPAY ==
[2023-12-27 13:19] VITALS: BP 140/64; PULSE 67; O2SAT 97; BMI 24.8
--- NOTE | 2023-12-27 13:19 | MHC.PC.OV ---
Vital Signs 12/27/23 13:19 Height 5 ft 9 in Weight 168 lb BMI 24.8 BP 140/64 H Blood Pressure Location Lt brachial Position Sitting Pulse 67 Pulse Source Pulse Oximeter Pulse Oximetry (%) 97 Oxygen Delivery Method Room Air Intake Visit Reasons: 6mof\u Operations Support Coordinator Required: No Accompanied by: Self / Same As Patient Allergies morphine [MORPHINE] Adverse Reaction (Intermediate, Verified 12/27/23 13:20) N/V, shortness of breath sulfamethoxazole [From BACTRIM] Adverse Reaction (Intermediate, Verified 12/27/23 13:20) N/V trimethoprim [From BACTRIM] Adverse Reaction (Intermediate, Verified 12/27/23 13:20) N/V Sulfa (Sulfonamide Antibiotics) Adverse Reaction (Unknown, Verified 12/27/23 13:20) nausea and vomiting Medication List - Last Reconciled 12/28/23 by Cristofer Deng MD daridorexant (Quviviq) 25 mg PO BEDTIME doxepin 6 mg PO BEDTIME PRN famotidine 20 mg PO DAILY lorazepam 1.5 mg (3 x 0.5 mg) PO BEDTIME PRN metoclopramide HCl (Reglan) 5 mg PO QIDACHS temazepam 15 mg PO BEDTIME PRN Tobacco use date assessed: 06/27/23 Fall risk assessment: No Falls in past year Last assessed Fall Risk: 12/27/23 Dental Screening Dental Screen Date: 06/27/23 HPI 6mof\u HPI Details irritable bowel syndrome and DJD LS spine with lumbar foraminal stenosis; stable but no longer playing tennis due to back pain PFSH Medical History Current use of anticoagulant therapy Lumbar radiculopathy Prostate cancer Surgical History History of cholecystectomy History of prostatectomy Social History Housing: House Patient Tobacco Use Status: Never used Tobacco Tobacco use type: Cigarette e-Cigarette/Vaping Use: Never Used Second Hand Smoke Exposure: No service: No Current occupational status: retired Cognitive needs: No Hearing needs: No Vision needs: No Questionnaire PHQ-9 Over the last 2 weeks, how often have you been bothered by any of the following problems? 1. Little interest or pleasure in doing things: not at all 2. Feeling down, depressed, or hopeless: not at all 3. Trouble falling or staying asleep, or sleeping too much: not at all 4. Feeling tired or having little energy: not at all 5. Poor appetite or overeating: not at all 6. Feeling bad about yourself - or that you are a failure or have let yourself or your family down: not at all 7. Trouble concentrating on things, such as reading the newspaper or watching television: not at all 8. Moving or speaking so slowly that other people could have noticed. Or the opposite - being so fidgety or restless that you have been moving around a lot more than usual: not at all 9. Thoughts that you would be better off or of hurting yourself in some way: not at all Total score: 0 Depression Screening Interpretation: Negative Depression Screening Done: Yes 33655 - PHQ-9 Billing: Yes Source: Developed by Drs. Michael Fontaine, Eliza Cuevas, Nirav Winchester and colleagues, with an educational lavinia from [employer]. Thrive Questionnaire Date Thrive assessed: 06/27/23 Are you currently unemployed and looking for a job?: No AUDIT C Alcohol Use Questionnaire (AUDIT-C) 1. How often do you have a drink containing alcohol?: 4 or more times a week 2. How many drinks containing alcohol do you have on a typical day when you are drinking?: 1 or 2 3. How often do you have six or more drinks on one occasion?: Never Total Score: 4 Score Reviewed/Action Taken: Yes GARY-7 AMB Questionnaire GARY-7 Date GARY - 7 assessed: 06/27/23 Source: Developed by Drs. Michael Fontaine, Eliza Cuevas, Nirav Winchester and colleagues, with an educational lavinia from [employer]. Review of Systems Const Denies chills, Denies headache(s) and Denies weight loss ENT Denies headache(s) Card Denies chest pain, Denies syncope, Denies irregular heart rhythm and Denies dyspnea Resp Denies chest congestion, Denies cough and Denies dyspnea GI Denies abdominal pain, Denies change in stool character, Denies nausea and Denies vomiting Musc Denies deformity and Denies joint swelling Neuro Denies syncope and Denies headache(s) Physical exam (Primary Care) Vital Signs: Last Vital Signs Pulse 67 12/27/23 13:19 BP 140/64 H 12/27/23 13:19 Pulse Ox 97 12/27/23 13:19 Oxygen Delivery Method Room Air 12/27/23 13:19 BMI result Body Mass Index 24.8 Tobacco/Smoking Status: Tobacco use Status Tobacco use date assessed 06/27/23 12/27/23 13:24 Patient Tobacco Use Status Never used Tobacco 12/27/23 13:24 Tobacco use type Cigarette 12/27/23 13:24 e-Cigarette/Vaping Use Never Used 12/27/23 13:24 PHQ-9: PHQ-9 Score PHQ-9: Total score 0 12/27/23 15:10 Depression Screening Interpretation: Negative Thrive Assessment: Date of Thrive Assessment Date Thrive assessed 06/27/23 12/27/23 13:24 Const General: cooperative, comfortable, no acute distress and alert Neck Neck: Yes no lymphadenopathy Thyroid: Thyroid normal Resp Effort & Inspection: normal respiratory effort Auscultation: clear to auscultation bilaterally Percussion: percussion normal Cardio Jugular venous distension: no JVD Palpation: normal PMI Rate: regular rate Rhythm: regular rhythm Heart sounds: S1 normal heart sound present and S2 normal heart sound present GI Inspection: Yes normal to inspection Palpation (GI): No hepatosplenomegaly present Skin General skin exam: no rashes or lesions noted Extrem General: Yes no clubbing, cyanosis or edema Coding Level of Care Code Est Pt Level 3 (46608) Diagnoses Lumbar foraminal stenosis M48.061 Irritable bowel K58.9 Assessment & Plan Assessment & Plan (1) Lumbar foraminal stenosis: Code(s): M48.061 - Spinal stenosis, lumbar region without neurogenic claudication Category: Medical Plan: per PSS (2) Irritable bowel: Code(s): K58.9 - Irritable bowel syndrome, unspecified Category: Medical Plan: per GI; stable Orders: Orders Prostate Specific Antigen Scr 12/27/23 Z00.00 - Encounter for general adult medical examination without abnormal findings Complete Blood Count Auto Diff 12/27/23 Z13.0 - Encounter for screening for diseases of the blood and blood-forming organs and certain disorders involving the immune mechanism Microalbumin, Random (w Creat) 12/27/23 E11.69 - Type 2 diabetes mellitus with other specified complication, E66.01 - Morbid (severe) obesity due to excess calories Comprehensive [place]. Panel Fast 12/27/23 Z13.9 - Encounter for screening, unspecified Medications: New famotidine 20 mg PO DAILY 90 tabs 3RF Refilled temazepam 15 mg PO BEDTIME PRN 90 caps 5RF sleep lorazepam 1.5 mg (3 x 0.5 mg) PO BEDTIME PRN 90 tabs 3RF anxiety
== END 2023-12-27 14:11 | disposition home or self-care (01) ==
PROVIDERS: PCP Internal Medicine; Visit Provider Internal Medicine
DX: M48.061 Spinal stenosis, lumbar region without neurogenic claudication (principal); K58.9 Irritable bowel syndrome, unspecified

== ENCOUNTER → 2023-12-27 13:18 | Outpatient (BNVA) | payer OTHER, SELFPAY | PROVIDERS: PCP Internal Medicine; Visit Provider Internal Medicine ==

== ENCOUNTER 2024-01-31 11:24 | Outpatient (REF) | payer OTHER, SELFPAY ==
[2024-01-31 13:42] LABS: MANUAL DIFF FLAG NO
[2024-01-31 13:54] LABS: Basophils Absolute Auto 0.1 X10*3/uL (0.0-0.2); Basophils Percent Auto 0.9 % (0-2); Eosinophils Absolute Auto 0.1 X10*3/uL (0.0-0.4); Eosinophils Percent Auto 1.4 % (0-4); Hematocrit 48.8 % (42.0-52.0); Hemoglobin 16.2 g/dl (14.0-18.0); Imm Gran Abs Auto 0.03 X10*3/uL (0.00-0.03); Imm Gran Pct Auto 0.4 % (0.0-0.4); Lymphocytes Absolute Auto 1.8 X10*3/uL (1.2-4.9); Lymphocytes Percent Auto 22.8 % (20-40); Mean Corpuscular HGB Conc 33.2 g/dl (31.0-36.0); Mean Corpuscular Hemoglobin 30.7 pg (27.0-33.0); Mean Corpuscular Volume 92.4 fL (80.0-98.0); Mean Platelet Volume 9.8 fL (9.4-12.4); Monocytes Absolute Auto 0.7 X10*3/uL (0.1-1.2); Monocytes Percent Auto 9.2 % (2-11); Neutrophils Percent Auto 65.3 % (45-73); Platelet Count 292 X10*3/uL (160-400); Red Blood Count 5.28 X10*6/uL (4.60-5.80); Red Cell Distribution Width 13.3 % (11.0-16.0); White Blood Count 7.7 X10*3/uL (4.8-10.8)
[2024-01-31 14:09] LABS: Alanine Aminotransferase 19 U/L (0-40); Alkaline Phosphatase 80 U/L (39-117); Anion Gap 9 (12-20); Aspartate Amino Transferase 23 U/L (5-37); Bilirubin Total 0.8 mg/dL (0.0-1.0); Blood Urea Nitrogen 15 mg/dL (9-16); Calcium 10.3 mg/dL (8.4-10.2); Carbon Dioxide 28 mmol/L (22-29); Chloride 107 mmol/L (96-108); Estimated Glomerular Filt Rate 51; Glucose Fasting 98 mg/dL (60-99); Potassium 4.3 mmol/L (3.3-5.1); Sodium 140 mmol/L (135-145)
[2024-01-31 14:26] LABS: Creatinine Urine 278.49 mg/dL; Microalbum/Creatinine Ratio Ur 4.6 ug/mg cr (<30)
[2024-01-31 14:33] LABS: Prostate Specific Antigen 0.37 ng/mL (<0.05-4.0)
== END 2024-01-31 11:25 | disposition home or self-care (01) ==
LOC: HO.10HDL 11:24
PROVIDERS: Referring Provider Urology; Visit Provider Internal Medicine
DX: Z13.9 Encounter for screening, unspecified (principal); Z13.0 Encounter for screening for diseases of the blood and blood-forming organs and certain disorders involving the immune mechanism; E11.69 Type 2 diabetes mellitus with other specified complication; E66.01 Morbid (severe) obesity due to excess calories; C61 Malignant neoplasm of prostate; Z12.5 Encounter for screening for malignant neoplasm of prostate
CPT/HCPCS: 36415; 80053; 82043; 82570; 84153; 85025

== ENCOUNTER 2024-04-04 14:19 | Outpatient (AMB) | payer OTHER, SELFPAY ==
--- NOTE | 2024-04-04 14:23 | A.OFFPC_ITS ---
Vital Signs 04/04/24 14:24 Height 5 ft 9 in Weight 164 lb 6 oz BMI 24.3 BP 130/68 Blood Pressure Location Lt brachial Position Sitting Pulse 65 Pulse Source Pulse Oximeter Temp 97.1 F Temp Source Skin Pulse Oximetry (%) 98 Oxygen Delivery Method Room Air Intake Visit Reasons: Annual Exam Intake Note: Patient is here today for a physical. Automatic Presser Required: No Child And Youth Program Assistant: Not Required per policy Accompanied by: Self / Same As Patient Allergies morphine [MORPHINE] Adverse Reaction (Intermediate, Verified 04/04/24 14:24) N/V, shortness of breath sulfamethoxazole [From BACTRIM] Adverse Reaction (Intermediate, Verified 04/04/24 14:24) N/V trimethoprim [From BACTRIM] Adverse Reaction (Intermediate, Verified 04/04/24 14:24) N/V Sulfa (Sulfonamide Antibiotics) Adverse Reaction (Unknown, Verified 04/04/24 14:24) nausea and vomiting Medication List - Last Reconciled 04/05/24 by Cristofer Deng MD daridorexant (Quviviq) 25 mg PO BEDTIME doxepin 6 mg PO BEDTIME PRN famotidine 20 mg PO DAILY lorazepam 1.5 mg (3 x 0.5 mg) PO BEDTIME PRN temazepam 15 mg PO BEDTIME PRN Tobacco use date assessed: 04/04/24 Fall risk assessment: No Falls in past year Last assessed Fall Risk: 04/04/24 Dental Screening Dental Screen Date: 04/04/24 Did you have a dental visit in the last 12 months?: Yes Did you have a dental problem in the last 6 months where you did not have access to dental care?: No Was dental information given to patient?: Patient has dentist HPI Annual Exam HPI Details Healthy; spinal stenosis with chronic radicular pain; insomnia and prostate cancer with low residual PSAs [facility] Medical History Current use of anticoagulant therapy Lumbar radiculopathy Prostate cancer Surgical History History of prostatectomy History of cholecystectomy Social History (Updated 04/04/24 @ 14:29 by ADRI Long) Housing: House Alcohol intake: current Alcohol intake frequency: 0-2 drinks per day Alcohol type: beer Patient Tobacco Use Status: Never used Tobacco Tobacco use type: Cigarette e-Cigarette/Vaping Use: Never Used Second Hand Smoke Exposure: No service: No Current occupational status: retired Cognitive needs: No Hearing needs: No Vision needs: Yes (Glasses) Questionnaire PHQ-9 Over the last 2 weeks, how often have you been bothered by any of the following problems? 1. Little interest or pleasure in doing things: several days 2. Feeling down, depressed, or hopeless: several days 3. Trouble falling or staying asleep, or sleeping too much: more than half the days 4. Feeling tired or having little energy: several days 5. Poor appetite or overeating: not at all 6. Feeling bad about yourself - or that you are a failure or have let yourself or your family down: not at all 7. Trouble concentrating on things, such as reading the newspaper or watching television: not at all 8. Moving or speaking so slowly that other people could have noticed. Or the opposite - being so fidgety or restless that you have been moving around a lot more than usual: not at all 9. Thoughts that you would be better off or of hurting yourself in some way: not at all Total score: 5 Depression Screening Interpretation: Positive Depression Screening Done: Yes Source: Developed by Drs. Michael Fontaine, Eliza Cuevas, Nirav Winchester and colleagues, with an educational lavinia from [employer]. Thrive Questionnaire Date Thrive assessed: 04/02/24 I am a: Patient What is your living situation today?: I have a steady place to live Within the past 12 months, did the food you bought not last and you didn't have the money to get more?: Never true Within the past 12 months, did you worry whether your food would run out before you got money to buy more?: Never true Do you have trouble paying for medicines?: No Do you have trouble getting transportation to medical appointments?: No Do you have trouble paying your heating and electricity bill?: No Do you have trouble taking care of your child, family member or friend?: No Do you have trouble with day-to-day activities such as bathing, preparing meals, shopping, managing finances, etc.?: No Are you currently unemployed and looking for a job?: No Are you interested in more education?: No Please select the resources that you would like help with: None Currently or been in a relationship where the following occur: No concerns re ported THRIVE Score: 0 AUDIT C Alcohol Use Questionnaire (AUDIT-C) 1. How often do you have a drink containing alcohol?: 4 or more times a week 2. How many drinks containing alcohol do you have on a typical day when you are drinking?: 1 or 2 3. How often do you have six or more drinks on one occasion?: Never Total Score: 4 GARY-7 AMB Questionnaire GARY-7 Date GARY - 7 assessed: 04/04/24 Feeling nervous, anxious, or on edge: 0 = Not at all Not being able to stop or control worryin = Not at all Worrying too much about different things: 0 = Not at all Trouble relaxin = Several days Being so restless that it is hard to sit still: 0 = Not at all Becoming easily annoyed or irritable: 0 = Not at all Feeling afraid as if something awful might happen: 0 = Not at all Total GARY-7 score (0-4 normal; 5-9 mild; 10-14 moderate; 15-21 severe): 1 Source: Developed by Drs. Michael Fontaine, Eliza Cuevas, Nirav Winchester and colleagues, with an educational lavinia from [employer]. Review of Systems Const Denies chills, Denies fatigue, Denies headache(s) and Denies weight loss Eyes Denies change in vision, Denies diplopia and Denies eye pain ENT Denies vertigo, Denies dizziness, Denies headache(s) and Denies nasal discharge Card Denies chest pain, Denies rapid heart rate and Denies dyspnea on exertion Resp Denies chest congestion, Denies cough, Denies pain with cough and Denies dyspnea on exertion GI Denies abdominal pain, Denies hematochezia and Denies change in bowel habits Musc Denies myalgias, Denies arthralgias and Denies joint swelling Skin/Breast Denies lesions and Denies unusual bruising Neuro Denies vertigo, Denies dizziness, Denies headache(s) and Denies focal weakness Endo Denies fatigue Physical exam (Primary Care) Vital Signs: Last Vital Signs Temp 97.1 F 04/04/24 14:24 Pulse 65 04/04/24 14:24 BP 130/68 04/04/24 14:24 Pulse Ox 98 04/04/24 14:24 Oxygen Delivery Method Room Air 04/04/24 14:24 BMI result Body Mass Index 24.3 Tobacco/Smoking Status: Tobacco use Status Tobacco use date assessed 04/04/24 04/04/24 14:30 Patient Tobacco Use Status Never used Tobacco 04/04/24 14:30 Tobacco use type Cigarette 04/04/24 14:30 e-Cigarette/Vaping Use Never Used 04/04/24 14:30 PHQ-9: PHQ-9 Score PHQ-9: Total score 5 04/04/24 14:30 Depression Screening Interpretation: Positive Thrive Assessment: Date of Thrive Assessment Date Thrive assessed 04/02/24 04/04/24 14:30 Currently or been in a relationship where the following occur: No concerns reported Const General: cooperative, healthy appearing and no acute distress Orientation/consciousness: oriented to person, oriented to place and oriented to time HENMT Head: Yes normal to inspection, Yes normocephalic and Yes atraumatic Mouth: Normal oral and palatal mucosa present and tongue normal Throat: Yes posterior oropharynx normal and Yes uvula midline Eyes General: appearance normal, both eyes and all related structures Neck Neck: Yes normal visual inspection, Yes full ROM and Yes no lymphadenopathy Thyroid: Thyroid normal Carotids: normal carotid upstroke Chest Chest palpation & inspection: normal inspection of the chest Resp Effort & Inspection: normal respiratory effort and able to speak in complete sentences Auscultation: clear to auscultation bilaterally Cardio Jugular venous distension: no JVD Palpation: normal PMI Rate: regular rate Rhythm: regular rhythm Heart sounds: S1 normal heart sound present and S2 normal heart sound present GI Inspection: Yes normal to inspection Palpation (GI): Soft to palpation and No hepatosplenomegaly present Auscultation: normal bowel sounds General: Yes no CVA tenderness Back/Spine/Pelvis Back: no CVA tenderness Skin General skin exam: no rashes or lesions noted Neuro General: oriented to person, oriented to place and oriented to time Extrem General: Yes normal to inspection and Yes full ROM Coding Level of Care Code Est Pt Prev Care >65y(28609) Diagnoses Physical exam Z00.00 Prostate cancer C61 Spinal stenosis M48.00 Insomnia G47.00 Assessment & Plan Assessment & Plan (1) Physical exam: Code(s): Z00.00 - Encounter for general adult medical examination without abnormal findings Category: Medical Plan: stable (2) Prostate cancer: Code(s): C61 - Malignant neoplasm of prostate Category: Medical Plan: per urology (3) Spinal stenosis: Code(s): M48.00 - Spinal stenosis, site unspecified Category: Medical Plan: stable; same rx (4) Insomnia: Code(s): G47.00 - Insomnia, unspecified Category: Medical Plan: stable; same rx Medications: Refilled lorazepam 1.5 mg (3 x 0.5 mg) PO BEDTIME PRN 90 tabs 3RF anxiety doxepin 6 mg PO BEDTIME PRN 90 tabs 8RF sleep daridorexant (Quviviq) 25 mg PO BEDTIME 30 tabs 5RF
[2024-04-04 14:24] VITALS: BP 130/68; PULSE 65; TEMP 36.2; O2SAT 98; BMI 24.3
--- OUTSIDE RECORDS SUMMARY | 2024-04-04 16:41 | XMS_ITS | Patient Health Record ---
Author Organization [facility] Address [address] [place] [phone] Care Team Providers Care Java Systems Analyst Name Role Phone Cristofer Deng MD Primary Care Provider Jillian brewer Prabhu Michael Unavailable [phone] ALLERGIES No Known Allergies REASON FOR REFERRAL No Information MEDICATIONS Medication SIG (Take, Route, Fr equency, Duration) Notes Start Date End Date Status Temazepam 15 MG (Schedule IV Drug) T LINDA ONE CAPSULE BY MOUTH AT BEDTIME NEEDED FOR 30 DAYS Oral for 30 A ctive Reglan 5 MG take 1 or 2 tablets Orally Every 6 hours as needed for abdominal bloating and discomfort for 30 day(s) 01/05/2023 Not-Nathanael ing Famotidine 20 MG 1 tablet at bedtime as needed Orally Once a day for 30 day(s) Active Doxepin HCl 10 MG 1 capsule at bedtime Orally Once a day for 30 day(s) Active IMMUNIZATIONS Vaccine Route Administration Date Status Comme nts Influenza Unknown 12/18/2018 Administered Influenza Unknown 02/11/2022 Administered SOCIAL HISTORY Sex Assigned At : Social History Observation Description Sex Assigned At Unknown PROBLEMS Problem Type ICD Code Onset Dates Problem Status W/U Status Risk SNOMED Code Notes Problem Epigastric abdominal pain (R10.13) Active confirmed 81398532 Problem Abdominal bloating (R14.0) Active confirmed 855338982 Problem Weight loss (R63.4) Active confirmed 28451562 Problem Shortness of breath (R06.02) Active confirmed 086829798 Problem Early satiety (R68.81) Active confirmed 121597712 Problem RUQ abdominal pain (R10.11) Active confirmed 481196647 Problem Abdominal pain, acute, generalized (R10.84) Active confirmed Generalized abdominal pain (277906662) Problem Pneumonia of right lower lobe due to infectious organism (J18.1) Active confirmed 664011770 VITAL SIGNS Blood pressure diastolic 00 mm Hg 10/26/2023 Height 69.5 in 10/26/2023 Blood pressure systolic 00 mm Hg 10/26/2023 Weight 166 lbs 10/26/2023 BMI 24.16 kg/m2 10/26/2023 Encounters Encounter Location Date Provider Diagnosis [facility] [address] [place] [phone] 07/06/2023 Michael Pelletier [facility] [address] [place] [phone] 10/26/2023 Michael Pelletier Abdominal bloating R14.0 and Epigastric abdominal pain R10.13 [facility] [address] [place] [phone] 07/06/2023 Michael Pelletier ASSESSMENTS Encounter Date Diagnosis Assessment Notes Treatment Notes Treatment Clinical Notes 10/26/2023 Epigastric abdominal pain (ICD-10 - R10.13) 10/26/2023 Abdominal bloating (ICD-10 - R14.0) Try to do the abdominal xray when the abdominal symptoms occur PLAN OF TREATMENT Pending Test Test Name Order Date CHEM 7 PROFILE 12/22/2021 LIVER PROFILE 12/22/2021 AMYLASE 01/08/2019 LIPASE 01/08/2019 CRP 01/14/2022 CRP 01/08/2019 CBC w DIFF 12/22/2021 CBC w DIFF 01/14/2022 CBC with MANUAL DIFFERENTIAL 01/08/2019 SED RATE (ESR) 01/08/2019 SED RATE (ESR) 01/14/2022 URINALYSIS + MICROSCOPIC 12/22/2021 CELIAC PANEL #10 01/14/2022 NUC HIDA SCAN 01/08/2019 XR ABD UPRIGHT AND CHEST 01/05/2023 XR CHEST 2 VIEW PA & LAT 01/08/2019 US ABD 12/22/2021 Amylase 12/22/2021 Lipase 12/22/2021 XR acute abdomen series 01/05/2023 Future Test Test Name Order Date COLONOSCOPY 08/07/2014 UPPER GI ENDOSCOPY 01/08/2019 Insurance Providers Payer Name Payer Address Payer Phone Subscriber Number Group Number Insured Name Patient Relationship to Insured Coverage Start Date Coverage End Date [facility] [address] [facility] [place] [phone] [id number] BRITTANEY ANDRE Self - patient is the insured MEDICAL (GENERAL) HISTORY Medical History History ICD Code Negative colonoscopies in 1994, 2000, an d on 01-31-2006 and 2014 Sigmoid diverticulosis Denies [place],DM,CVA,Lung disease,renal dise ase Prostate Cancer 2011--surgery as below Neg. abdominal ultrasound in 2017 Negative H. pylori serology and negative H. pylori stool test in 2017 Negative EGD in 01/2019 Pulmonary embolus in [address] and U/S in 2021 Negative Cologuard test in 2022 Surgical History Surgery Date(Month/Year) Lap. prostatectomy for cancer 05/2015 Basal cell skin cancers x 6 Back surgery - [facility]--L4 foraminencto my-Dr. Badillo 04/14/2022 [facility] for acalculous cholecystitis 2018 back surgery 05/06
--- OUTSIDE RECORDS SUMMARY | 2024-04-04 16:41 | XMS_ITS ---
Author Organization [facility] Address [address] [place] [phone] Care Team Providers Care Corduroy Cutter Operator Name Role Phone Cristofer Deng MD Primary Care Provider Unavaila Michael Osorio [phone] REASON FOR VISIT r/s todays appt. Encounters Encounter Location Date Provider Diagnosis [facility] [address] [place] [phone] 07/06/2023 Michael Pelletier PLAN OF TREATMENT No Information
--- OUTSIDE RECORDS SUMMARY | 2024-04-04 16:41 | XMS_ITS ---
Author Organization [facility] Address [address] [place] [phone] Care Team Providers Care Tape Cutting Machine Operator Name Role Phone Cristofer Deng MD Primary Care Provider Michael Ya [phone] ALLERGIES No Known Allergies REASON FOR VISIT Patient presents today for a f/u office visit for abdominal pain MEDICATIONS Medication SIG (Take, Route, Fr equency, [...] Once a day for 30 day(s) Active VITAL SIGNS BMI 24.16 kg/m2 10/26/2023 Blood pressure systolic 00 mm Hg 10/26/19 24 Blood pressure diastolic 00 mm Hg 024 Height 69.5 in 10/26/2023 Weight 166 lbs 10/26/2023 Encounters Encounter Location Date Provider Diagnosis [facility] [address] [place] [phone] 10/26/2023 Michael Pelletier Abdominal bloating R14.0 and Epigastric abdominal pain R10.13 ASSESSMENTS Encounter Date Diagnosis Assessment Notes Treatment Notes Treatment Clinical Notes 10/26/2023 Abdominal bloating (ICD-10 - R14.0) Try to do the abdominal xray when the abdominal symptoms occur 10/26/2023 Epigastric abdominal pain (ICD-10 - R10.13) PLAN OF TREATMENT Treatment Notes Assessment Notes Abdominal bloating Try to do the abdomi nal xray when the abdominal symptoms occur Next Appt Details Follow Up: 1 Year, Reason: Progress Notes * Examination Category Sub-Category Detail Notes General Examination GENERAL APPEARANCE: pleasant , well nourished, well developed, in no acute distress EYES: sclera non-icteric NECK/THYROID: no cervical lymphade nopathy, neck supple HEART: S1, S2 normal LUNGS: clear to auscultatio n bilaterally ABDOMEN: normal bowel sounds, no guarding or rigidity, no hepatosplenomegaly, no masses palpable, soft, nontender, nondistended. NEUROLOGIC: alert and oriented SKIN: nonjaundiced, no spi christie angiomata. EXTREMITIES: no edema ORAL CAVITY: mucosa moist
--- OUTSIDE RECORDS SUMMARY | 2024-04-04 16:41 | XMS_ITS ---
Author Organization [facility] Address [address] [place] [phone] Care Team Providers Care Statistical Clerk Advertising Name Role Phone Cristofer Deng MD Primary Care Provider Unavaila Michael Osorio [phone] REASON FOR VISIT Patient presents today for abdominal pain Encounters Encounter Location Date Provider Diagnosis [facility] [address] [place] [phone] 07/06/2023 Michael Pelletier PLAN OF TREATMENT No Information
== END 2024-04-04 15:04 | disposition home or self-care (01) ==
PROVIDERS: PCP Internal Medicine; Visit Provider Internal Medicine
DX: Z00.00 Encounter for general adult medical examination without abnormal findings (principal); C61 Malignant neoplasm of prostate; M48.00 Spinal stenosis, site unspecified; G47.00 Insomnia, unspecified

== ENCOUNTER 2024-06-20 12:32 | Outpatient (REF) | payer OTHER, SELFPAY ==
--- OUTSIDE RECORDS SUMMARY | 2024-06-20 14:29 | XMS_ITS ---
Author Organization [facility] Address [address] [place] [phone] Care Team Providers Care Risk And Insurance Manager Name Role Phone Cristofer Deng MD Primary Care Provider Michael Ya [phone] REASON FOR VISIT Patient presents today for abdominal pain Encounters Encounter Location Date Provider Diagnosis [facility] [address] [facility] [address] [place] [phone] 07/06/2023 Michael Pelletier Plan Of Treatment No Information Progress Notes * BRITTANEY ANDRE MDDOB:[birth year] (79 yo M)Acc No.[id number]:07/06/2023 Progress Notes Patient:?BRITTANEY ANDRE MD Provider:?Michael Pelletier MD :1945???Age:78 Y???Sex:Male Ruddy e:07/06/2023 Address:[address] [place], [place] [phone] Pcp:Cristofer Deng MD Subjective: * Chief Complaints: * ???1. Patient presents today for abdominal pain. * Medical History:? Objective: * Vitals:? Assessment: Plan: * Treatment: * * The named appointment provid er may or may not be the originator of this progress note, and it is not deemed complete until electronically signed by the appointment provider. Sign off status: Pending * Provider:?Michael Pelletier MD Date:? 024 Generated for Printi ng/Fabillg/eTransmitting on:?06/20/2024 02:29 PM EDT
--- OUTSIDE RECORDS SUMMARY | 2024-06-20 14:30 | XMS_ITS ---
Author Organization [facility] Address [address] [place] [phone] Care Team Providers Care Volunteer Recruitment Coordinator Name Role Phone Cristofer Deng MD Primary Care Provider Michael Ya [phone] Allergies No Known Allergies REASON FOR VISIT Patient presents today for a f/u office visit for abdominal pain Medications Medication SIG (Take, Route, Fr equency, Duration) [...] Once a day for 30 day(s) Active Vital Signs Blood pressure systolic 00 mm Hg 10/26/19 24 Blood pressure diastolic 00 mm Hg 024 Height 69.5 in 10/26/2023 Weight 166 lbs 10/26/2023 BMI 24.16 kg/m2 10/26/2023 Encounters Encounter Location Date Provider Diagnosis [facility] [address] [place] [phone] 10/26/2023 Michael Pelletier Abdominal bloating R14.0 and Epigastric abdominal pain R10.13 Assessments Encounter Date Diagnosis (ICD Code) Assessment Notes Treatment Notes Treatment Clinical Notes Section Notes 10/26/2023 Abdominal bloating (ICD-10 - R14.0) Try to do the abdominal xray when the abdominal symptoms occur Overall, Sky appears quite well. We did review his GI complaints and I advised him that while the symptoms continue to occur I still feel this is consistent with some intestinal spasm and do not reflect any underlying serious intra-abdominal pathology given his excellent clinical appearance, the long-standing nature of his symptoms, and the previous extensive workup including imaging studies and endoscopies. I did encourage him to have the x-ray done as soon as possible during a time when the symptoms are fairly pronounced to try to see if there is any evidence of some distended loops of bowel that might be causing his problem rather than just some functional bowel disease, i.e. irritable bowel syndrome. Assuming the x-ray to be negative for any sign of mechanical obstruction, I would then recommend we continue to try to treat this symptomatically . I did advise him to minimize the use of Reglan as I really don't think that'll help his symptoms. I did advise him to continue his current regimen of the famotidine and p.r.n. omeprazole for any reflux symptoms as well. At this point I don't think any further studies are needed such as an upper endoscopy, colonoscopy, or other imaging studies besides the abdominal x-ray. If things remain stable and otherwise well I will plan to see him in one year for a followup visit. I did advise him to call me prior to that if he has any problems or questions I can be of assistance with. Sky was comfortable with this plan. Thank you again for allowing me to participate in Sky's care. I shall continue to keep you advised of his progress. 10/26/2023 Epigastric abdominal pain (ICD-10 - R10.13) Overall, Sky appears quite well. We did review his GI complaints and I advised him that while the symptoms continue to occur I still feel this is consistent with some intestinal spasm and do not reflect any underlying serious intra-abdominal pathology given his excellent clinical appearance, the long-standing nature of his symptoms, and the previous extensive workup including imaging studies and endoscopies. I did encourage him to have the x-ray done as soon as possible during a time when the symptoms are fairly pronounced to try to see if there is any evidence of some distended loops of bowel that might be causing his problem rather than just some functional bowel disease, i.e. irritable bowel syndrome. Assuming the x-ray to be negative for any sign of mechanical obstruction, I would then recommend we continue to try to treat this symptomatically . I did advise him to minimize the use of Reglan as I really don't think that'll help his symptoms. I did advise him to continue his current regimen of the famotidine and p.r.n. omeprazole for any reflux symptoms as well. At this point I don't think any further studies are needed such as an upper endoscopy, colonoscopy, or other imaging studies besides the abdominal x-ray. If things remain stable and otherwise well I will plan to see him in one year for a followup visit. I did advise him to call me prior to that if he has any problems or questions I can be of assistance with. Sky was comfortable with this plan. Thank you again for allowing me to participate in Sky's care. I shall continue to keep you advised of his progress. Plan Of Treatment Treatment Notes Assessment Notes Abdominal bloating Try to do the abdomi nal xray when the abdominal symptoms occur Next Appt Details Follow Up: 1 Year, Reason: Progress Notes * BRITTANEY ANDRE MDDOB:[birth year] (78 yo M)Acc No.[id number]:10/26/2023 Progress Notes Patient:?JESBRITTANEY Provider:?Michael Pelletier MD :1945???Age:78 Y???Sex:Male Ruddy e:10/26/2023 Address:[address] [place], [place] [phone] Pcp:Cristofer Deng MD Subjective: * Chief Complaints: * ???Patient presents today fo r a f/u office visit for abdominal pain * HPI: ???incontinence:? I saw Sky in followup today in regard to his intermittent abdominal discomfort with associated bloating and gas. ?Since I last saw Sky in December of 2022 he reports he has continued to have intermittent episodes of his epigastric and right-sided abdominal discomfort with some bloating and sense of distention. He describes associated gas in regard to primarily belching. Since I last saw him he has had these episodes fairly frequently but does not have any other associated symptoms such as jaundice, fevers, vomiting, change in bowel habits, any sign of GI bleeding, nor significant anorexia. His weight has remained very stable. ?He does report having tried some Reglan occasionally but without any definitive improvement. He does remain on his daily famotidine with usually good relief of reflux, although will take an occasional omeprazole. ?Since I saw him last December he did not do the p.r.n. abdominal x-ray that I had ordered for him to try to obtain an x-ray during the episodes of significant abdominal bloating and discomfort. He reports that this is primarily due to the fact that some of the episodes are at night and the outpatient Radiology Department is closed at that time. Other episodes are in the morning but he has to go to work at the [employer] and by the time he is finished at work the episodes are significantly improved. Therefore, he doesn't think going for the ?X-ray would be of much help at that point. * ROS:?General/Constitutional:?Change in appetite?denies.?Chills?denies.?Fatigue?denies.?Ophthalmologic:?Patient denies? Negative..?ENT:?Patient denies?Negative..?Respiratory:?Patient denies?No coughing/hemoptysis..?Cardiovascular:?Patient denies? No chest pain/orthopnea..?Gastrointestinal:?Comments?See HPI for details.?Genitourinary:?Patient denies? No dysuria/hematuria..?Incontinence?denies.?Musculoskeletal:?Patient denies? No specific arthralgias/myalgias..?Skin:?Patient denies?No rash/pruritus..?Neurologic:?Patient denies? No headaches/seizures..?Psychiatric:?Patient denies?Negative..? * Medical History:? * Surgical History:?Lap. prost atectomy for cancer 05/2015Basal cell skin cancers x 6 Back surgery - [facility]--L4 foraminenctomy-Dr. Badillo 3CCY for acalculous cholecystitis 2019back surgery 05/06 * Hospitalization/Major Diagno stic Procedure:?No Hospitalization History. * Family History:?Father: dece ased, diagnosed with Colon cancer.?Mother: .? The patient's father developed colon cancer of the transverse colon at the age of 57. * Social History:?Tobacco Use:?Tobacco Use/Smoking?Are you a: nonsmoker.?Drugs/Alcohol:?Alcohol Screen?Points: 4, Interpretation: Positive.?Miscellaneous:?Marital status: . 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 ???Nonsmoker; no sig alcohol. * Medications:?TakingFamotidin e 20 MG Tablet 1 tablet at bedtime as needed Orally Once a dayDoxepin HCl 10 MG Capsule 1 capsule at bedtime Orally Once a dayTemazepam 15 MG Capsule (Schedule IV Drug) TAKE ONE CAPSULE BY MOUTH AT BEDTIME NEEDED FOR 30 DAYS Oral Taking Famotidine 20 MG Tablet 1 tablet at bedtime as needed Orally Once a dayTaking Doxepin HCl 10 MG Capsule 1 capsule at bedtime Orally Once a dayTaking Temazepam 15 MG Capsule (Schedule IV Drug) TAKE ONE CAPSULE BY MOUTH AT BEDTIME NEEDED FOR 30 DAYS Oral Not-Taking/PRNReglan 5 MG Tablet take 1 or 2 tablets Orally Every 6 hours as needed for abdominal bloating and discomfortMedication List reviewed and reconciled with the patientNot-Taking/PRN Reglan 5 MG Tablet take 1 or 2 tablets Orally Every 6 hours as needed for abdominal bloating and discomfortMedication List reviewed and reconciled with the patient * Allergies:?N.K.D.A.yes[Aller gies Verified] Objective: * Vitals:?Wt: 166 lbs, Ht: 69. 5 in, BMI:24.16 Index, BP: 00/00 mm Hg. * Examination: ???General Examination: ?GENERAL APPEARANCE:?pleasant, well nourished, well developed, in no acute distress.?EYES:?sclera non-icteric.?ORAL CAVITY:?mucosa moist.?NECK/THYROID:?no cervical lymphadenopathy, neck supple.?SKIN:?nonjaundiced, no spider angiomata..?HEART:?S1, S2 normal.?LUNGS:?clear to auscultation bilaterally.?ABDOMEN:?normal bowel sounds, no guarding or rigidity, no hepatosplenomegaly, no masses palpable, soft, nontender, nondistended..?EXTREMITIES:?no edema.?NEUROLOGIC:?alert and oriented.? Assessment: * Assessment: 1.?Abdominal bloating - R14. 0 (Primary)?2.?Epigastric abdominal pain - R10.13? Overall, Al appears quite we ll. We did review his GI complaints and I advised him that while the symptoms continue to occur I still feel this is consistent with some intestinal spasm and do not reflect any underlying serious intra-abdominal pathology given his excellent clinical appearance, the long-standing nature of his symptoms, and the previous extensive workup including imaging studies and endoscopies. I did encourage him to have the x-ray done as soon as possible during a time when the symptoms are fairly pronounced to try to see if there is any evidence of some distended loops of bowel that might be causing his problem rather than just some functional bowel disease, i.e. irritable bowel syndrome. Assuming the x-ray to be negative for any sign of mechanical obstruction, I would then recommend we continue to try to treat this symptomatically. I did advise him to minimize the use of Reglan as I really don't think that'll help his symptoms. I did advise him to continue his current regimen of the famotidine and p.r.n. omeprazole for any reflux symptoms as well. At this point I don't think any further studies are needed such as an upper endoscopy, colonoscopy, or other imaging studies besides the abdominal x-ray. If things remain stable and otherwise well I will plan to see him in one year for a followup visit. I did advise him to call me prior to that if he has any problems or questions I can be of assistance with. Sky was comfortable with this plan. Thank you again for allowing me to participate in Sky's care. I shall continue to keep you advised of his progress. Plan: * Treatment: * Procedure Codes:?1036F TOBAC CO [id number] BP SCR NOT PRFRM REC REASON NOS * Preventive Medicine:? ??Counseling:?Care goal follow-up plan:?Above Normal BMI Follow-up?Giving encouragement to exercise,?BMI management provided?Yes.? ??Screenings:?Fall Risk Screening?Fall Risk Assessment:?No falls in the past year.? * Follow Up:?1 Year * * Sign off status: Completed true * Provider:?Michael Pelletier MD Date:? 024 Generated for Toni pacheco/Clifford/Ricardosmitting on:?06/20/2024 02:29 PM EDT History and Physical Notes * HPI (History of Present Illness) Category Sub-Category Detail Notes Category Not es incontinence I saw Sky in followup today in regard to his intermittent abdominal discomfort with associated bloating and gas. Since I last saw Sky in December of 2022 he reports he has continued to have intermittent episodes of his epigastric and right-sided abdominal discomfort with some bloating and sense of distention. He describes associated gas in regard to primarily belching. Since I last saw him he has had these episodes fairly frequently but does not have any other associated symptoms such as jaundice, fevers, vomiting, change in bowel habits, any sign of GI bleeding, nor significant anorexia. His weight has remained very stable. He does report having tried some Reglan occasionally but without any definitive improvement. He does remain on his daily famotidine with usually good relief of reflux, although will take an occasional omeprazole. Since I saw him last December he did not do the p.r.n. abdominal x-ray that I had ordered for him to try to obtain an x-ray during the episodes of significant abdominal bloating and discomfort. He reports that this is primarily due to the fact that some of the episodes are at night and the outpatient Radiology Department is closed at that time. Other episodes are in the morning but he has to go to work at the [employer] and by the time he is finished at work the episodes are significantly improved. Therefore, he doesn't think going for the X-ray would be of much help at that point. Examination Category Sub-Category Detail Notes Category Not es General Examination GENERAL APPEARANCE: pleasant , well [...]
--- OUTSIDE RECORDS SUMMARY | 2024-06-20 14:30 | XMS_ITS ---
Author Organization [facility] Address [address] [place] [phone] Care Team Providers Care Heavy Equipment Sales Manager Name Role Phone Cristofer Deng MD Primary Care Provider Michael Ya [phone] REASON FOR VISIT r/s todays appt. Encounters Encounter Location Date Provider Diagnosis [facility] [address] [place] [phone] 07/06/2023 Michael Pelletier Plan Of Treatment No Information Progress Notes * BRITTANEY ANDRE MDDOB:[birth year] (78 yo M)Acc No.[id number]:07/06/2023 Patient:?BRITTANEY ANDRE :1945???Age:78 Y???Sex:Male Address:[address] [place] [phone] * true * Date:? Generated for Toni pacheco/Clifford/eTransmitting on:?06/20/2024 02:29 PM EDT
--- OUTSIDE RECORDS SUMMARY | 2024-06-20 14:30 | XMS_ITS | Patient Health Record ---
Author Organization [facility] Address [address] [place] [id number] Care Team Providers Care Pin Setter Name Role Phone Cristofer Deng MD Primary Care Provider Jillian brewer PelletierMichael Unavailable [phone] Allergies No Known Allergies Reason For Referral No Information Medications Medication SIG (Take, Route, Fr equency, [...] Once a day for 30 day(s) Active Immunizations Vaccine Route Administration Date Status Comme nts Influenza Unknown 12/18/2018 Administered Influenza Unknown 02/11/2022 Administered Problems Problem Type SNOMED Code ICD Code Onset Dates Problem Status W/U Status Risk Notes Problem 50460049 Epigastric abdominal pain (R10.13) Active confirmed Problem 802188290 Abdominal bloating (R14.0) Active confirmed Problem 80169969 Weight loss (R63.4) Active confirmed Problem 284754079 Shortness of breath (R06.02) Active confirmed Problem 468298378 Early satiety (R68.81) Active confirmed Problem 851576103 RUQ abdominal pain (R10.11) Active confirmed Problem Generalized abdominal pain (734317692) Abdominal pain, acute, generalized (R10.84) Active confirmed Problem 760608499 Pneumonia of right lower lobe due to infectious organism (J18.1) Active confirmed Vital Signs Blood pressure diastolic 00 mm Hg 10/26/2023 Height 69.5 in 10/26/2023 Blood pressure systolic 00 mm Hg 10/26/2023 Weight 166 lbs 10/26/2023 BMI 24.16 kg/m2 10/26/2023 Encounters Encounter Location Date Provider Diagnosis [facility] [address] [place] [address] 10/26/2023 Michael Prabhu Abdominal bloating R14.0 and Epigastric abdominal pain R10.13 [facility] [address] [place] [address] 07/06/2023 Michael Pelletier Assessments Encounter Date Diagnosis (ICD Code) Assessment Notes Treatment Notes Treatment Clinical Notes Section Notes 10/26/2023 Epigastric abdominal pain (ICD-10 - R10.13) Overall, Al appears quite well. We did review his [...] keep you advised of his progress. 10/26/2023 Abdominal bloating (ICD-10 - R14.0) Try [...] advised of his progress. Plan Of Treatment Pending Test Test Name Order Date CHEM 7 PROFILE 12/22/2021 LIVER PROFILE 12/22/2021 AMYLASE 01/08/2019 LIPASE 01/08/2019 CRP 01/08/2019 CRP 01/14/2022 CBC w DIFF 12/22/2021 CBC w DIFF 01/14/2022 CBC with MANUAL DIFFERENTIAL 01/08/2019 SED RATE (ESR) 01/14/2022 SED RATE (ESR) 01/08/2019 URINALYSIS + MICROSCOPIC 12/22/2021 CELIAC PANEL #10 [...] Insured Coverage Start Date Coverage End Date [facility] [address] [facility] [place], [place] [phone] [id number] BRITTANEY ANDRE Self - patient is the insured Medical (General) History Medical History History ICD Code Negative colonoscopies in 1994, 2000, an d on 01-31-2006 and 2014 Sigmoid diverticulosis Denies MD,DM,CVA,Lung disease,renal dise ase Prostate Cancer 2011--surgery as below Neg. abdominal ultrasound in 2017 Negative H. pylori serology and negative H. pylori stool test in 2018 Negative EGD in 01/2019 Pulmonary embolus in [address] and U/S in 2021 Negative Cologuard test in 2022 Surgical History Surgery Date(Month/Year) Lap. prostatectomy for cancer 05/2015 Basal cell skin cancers x 6 Back surgery [facility]--L4 foraminencto my-Dr. Badillo 04/14/2022 [facility] for acalculous cholecystitis 2018 back surgery 05/06
[2024-06-20 14:53] LABS: Prostate Specific Antigen 0.52 ng/mL (<0.05-4.0)
== END 2024-06-20 12:33 | disposition home or self-care (01) ==
LOC: HO.10HDL 12:32
PROVIDERS: Visit Provider Urology
DX: Z12.5 Encounter for screening for malignant neoplasm of prostate (principal); C61 Malignant neoplasm of prostate
CPT/HCPCS: 36415; 84153

== ENCOUNTER 2024-08-24 11:21 | Outpatient (AMB) | payer OTHER, SELFPAY ==
[2024-08-24 11:23] VITALS: BP 122/64; PULSE 68; RESP 16; TEMP 36.3; BMI 23.4
--- NOTE | 2024-08-24 11:23 | A.OFFPC_ITS ---
Vital Signs 08/24/24 11:23 Height 5 ft 9 in Weight 158 lb 12.8 oz BMI 23.4 BP 122/64 Blood Pressure Location Lt brachial Position Sitting Respiration 16 Pulse 68 Pulse Source Pulse Oximeter Temp 97.3 F Temp Source Oral Oxygen Delivery Method Room Air Intake Visit Reasons: vertigo/balance issue Plant Equipment Engineer Required: No Accompanied by: Self / Same As Patient Allergies morphine [MORPHINE] Adverse Reaction (Intermediate, Verified 08/24/24 11:43) N/V, shortness of breath sulfamethoxazole [From BACTRIM] Adverse Reaction (Intermediate, Verified 08/24/24 11:43) N/V trimethoprim [From BACTRIM] Adverse Reaction (Intermediate, Verified 08/24/24 11:43) N/V Sulfa (Sulfonamide Antibiotics) Adverse Reaction (Unknown, Verified 08/24/24 11:43) nausea and vomiting Medication List - Last Reconciled 08/24/24 by PARISA Dorman doxepin 6 mg PO BEDTIME PRN famotidine 20 mg PO DAILY lorazepam 1.5 mg (3 x 0.5 mg) PO BEDTIME PRN temazepam 15 mg PO BEDTIME PRN Tobacco use date assessed: 08/24/24 Fall risk assessment: No Falls in past year Last assessed Fall Risk: 08/24/24 Dental Screening Dental Screen Date: 08/24/24 Did you have a dental visit in the last 12 months?: Yes Did you have a dental problem in the last 6 months where you did not have access to dental care?: No Was dental information given to patient?: Patient has dentist HPI vertigo/balance issue HPI Details The patient is an 79-year-old male presenting with concerns of worsening positional vertigo and tinnitus. He has long-standing tinnitus which has recently intensified over the past few years. For several years, he has experienced occasional episodes of vertigo, which previously were sporadic, transient, and non-recurring. In the past one to two months, however, the vertigo has increased in frequency and now occurs almost every day, typically induced by movements such as bending over or lying on one side. Balance difficulties have also emerged more prominently, described as feeling off-balance, but without any reported falls. He attributes no recent or severe trauma as a cause. 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 Okeefe. Consultations with this specialist have not been recent. A history of lumbar spinal stenosis is noted, for which surgery was performed, resulting in some remaining numbness in the feet that may exacerbate balance issues. He was seen ENT routinely but most of the time it was for impacted cerumen States that his last visit was probably 2 years ago The patient reports that his symptoms have been increasing significant quickly- and he is wondering if he should get a cat scant to make sure everything else is going Reports that he would like to hold off and vestibular therapy until getting the results of the CT scan Patient denies headache, no visual changes, no ataxia, no nausea or vomiting, denies tingling + Romberg on exam [facility] Medical History Lumbar radiculopathy Prostate cancer Current use of anticoagulant therapy Surgical History History of prostatectomy History of cholecystectomy Social History Housing: House Alcohol intake: current Alcohol intake frequency: 0-2 drinks per day Alcohol type: beer Patient Tobacco Use Status: Never used Tobacco Tobacco use type: Cigarette e-Cigarette/Vaping Use: Never Used Second Hand Smoke Exposure: No service: No Current occupational status: retired Cognitive needs: No Hearing needs: No Vision needs: Yes (Glasses) Questionnaire Thrive Questionnaire Date Thrive assessed: 08/24/24 I am a: Patient What is your living situation today?: I have a steady place to live Within the past 12 months, did the food you bought not last and you didn't have the money to get more?: Never true Within the past 12 months, did you worry whether your food would run out before you got money to buy more?: Never true Do you have trouble paying for medicines?: No Do you have trouble getting transportation to medical appointments?: No Do you have trouble paying your heating and electricity bill?: No Do you have trouble taking care of your child, family member or friend?: No Do you have trouble with day-to-day activities such as bathing, preparing meals, shopping, managing finances, etc.?: No Are you currently unemployed and looking for a job?: No Are you interested in more education?: No Please select the resources that you would like help with: None Currently or been in a relationship where the following occur: No concerns reported THRIVE Score: 0 AUDIT C Alcohol Use Questionnaire (AUDIT-C) 1. How often do you have a drink containing alcohol?: 4 or more times a week 2. How many drinks containing alcohol do you have on a typical day when you are drinking?: 1 or 2 3. How often do you have six or more drinks on one occasion?: Never Total Score: 4 Score Reviewed/Action Taken: Yes GARY-7 AMB Questionnaire GARY-7 Date GARY - 7 assessed: 04/04/24 Source: Developed by Drs. Michael Fontaine, Eliza Cuevas, Nirav Winchester and colleagues, with an educational lavinia from [employer]. Review of Systems Const Denies headache(s) and Denies weakness Eyes Denies loss of vision ENT Reports vertigo, Reports dizziness, Denies headache(s), Reports hearing loss (High pitch), Reports disequilibrium and Denies sore throat Card Denies chest pain, Denies leg edema and Denies lightheadedness Resp Denies cough, Denies hemoptysis and Denies wheezing GI Denies abdominal pain, Denies melena, Denies constipation, Denies diarrhea and Denies vomiting Reports no additional complaints Musc Reports back pain (History of lumbar surgery), Denies arthralgias, Denies joint swelling, Reports numbness (Associated with status post lumbar surgery) and Denies tingling Neuro Denies Abnormal speech present, Denies behavioral changes, Reports vertigo, Reports dizziness, Denies headache(s), Denies loss of vision, Denies memory loss, Reports numbness (Associated with status post lumbar surgery), Reports restless legs, Denies tingling, Reports disequilibrium and Denies weakness Psych Denies anxiety, Denies behavioral changes, Denies depression, Denies memory loss and Denies panic attacks Dimitris/Lymph Denies easy bleeding and Denies easy bruising Aller/Immun Denies wheezing Physical exam (Primary Care) Vital Signs: Last Vital Signs Temp 97.3 F 08/24/24 11:23 Pulse 68 08/24/24 11:23 Resp 16 08/24/24 11:23 BP 122/64 08/24/24 11:23 Oxygen Delivery Method Room Air 08/24/24 11:23 BMI result Body Mass Index 23.4 Tobacco/Smoking Status: Tobacco use Status Tobacco use date assessed 08/24/24 08/24/24 11:32 Patient Tobacco Use Status Never used Tobacco 08/24/24 11:32 Tobacco use type Cigarette 08/24/24 11:32 e-Cigarette/Vaping Use Never Used 08/24/24 11:32 Thrive Assessment: Date of Thrive Assessment Date Thrive assessed 08/24/24 08/24/24 11:32 Currently or been in a relationship where the following occur: No concerns reported Const General: healthy appearing, no acute distress, alert and awake Nutritional Appearance: well nourished Orientation/consciousness: oriented to person, oriented to place and oriented to time HENMT Ears: TM's normal bilaterally General nose exam: Normal nasal mucous membranes and turbinates present Mouth: Normal oral and palatal mucosa present Eyes Conjunctivae: conjunctivae normal Sclerae: sclerae normal Pupils: Equal, round and reactive pupils present Neck Neck: Yes no lymphadenopathy and Yes no JVD Thyroid: Thyroid normal Carotids: no bruits Resp Effort & Inspection: normal respiratory effort and not tachypneic Auscultation: no crackles, no rales, no rhonchi and no wheezes Cardio Rate: regular rate Rhythm: regular rhythm Heart sounds: no murmurs and normal S1 and S2 GI Palpation (GI): Soft to palpation, nontender, no hepatomegaly and no splenomegaly Auscultation: normal bowel sounds Skin General skin exam: no rashes or lesions noted and dry skin Neuro General: oriented to person, oriented to place and oriented to time Cranial nerves: Yes Equal, round and reactive pupils present Speech: No Abnormal speech present Gait exam (Neuro): Normal gait present Motor exam (neuro): 5/5 motor strength present throughout, no tremor noted and no asterixis Coordination: Romberg test positive Extrem Right upper extremity: full ROM Left upper extremity: full ROM Right lower extremity: full ROM; no edema Left lower extremity: full ROM; no edema Psych Mental Status: mental status grossly normal Speech and movement: Normal speech and movement present Affect: normal affect Attitude: cooperative Thought process: Normal thought process present Coding Level of Care Code Est Pt Level 3 (80297) Diagnoses Tinnitus, bilateral H93.13 Vertigo R42 Balance problem R26.89 Time Spent (min) 33 Assessment & Plan Assessment & Plan (1) Tinnitus, bilateral: Code(s): H93.13 - Tinnitus, bilateral Category: Medical (2) Vertigo: Code(s): R42 - Dizziness and giddiness Category: Medical (3) Balance problem: Code(s): R26.89 - Other abnormalities of gait and mobility Category: Medical Plan Progressive positional vertigo and intensified tinnitus necessitate diagnostics, including a CAT scan, to rule out neurological causes and reassure concern about symptom escalation. Follow-up with the patient's ENT specialist is suggested to consider updated audiological assessments or interventions. Given his lumbar spinal surgery history and residual numbness affecting balance, vestibular rehab may be considered post-imaging assessment. Coordination with ENT and potentially neurology will inform management as diagnostic data materialize. Patient was informed and verbally consented to the use of an ambient scribe for clinic note documentation during this visit. Orders: Orders CT head/brain wo IV con Today H93.13 - Tinnitus, bilateral, R26.89 - Other abnormalities of gait and mobility, R42 - Dizziness and giddiness
--- OUTSIDE RECORDS SUMMARY | 2024-08-24 12:21 | XMS_ITS ---
Author Organization [facility] Address [address] [place] [id number] Care Team Providers Care Flagger Name Role Phone Cristofer Deng MD Primary Care Provider Michael Ya [phone] REASON FOR VISIT Patient presents today for abdominal pain Encounters Encounter Location Date Provider Diagnosis [facility] [address] [facility] [address] [place] [phone] 07/06/2023 Michael Pelletier Plan Of Treatment No Information Progress Notes * BRITTANEY ANDRE MDDOB:[birth year] (79 yo M)Acc No.[id number]:07/06/2023 Progress Notes Patient:?BRITTANEY ANDRE MD Provider:?Michael Pelletier MD :1945???Age:78 Y???Sex:Male Ruddy e:07/06/2023 Address:[address] [place], [place] [id number] Pcp:Cristofer Deng MD Subjective: * Chief Complaints: [...] MD Date:? 024 Generated for Printi ng/Fabillg/eTransmitting on:?08/24/2024 12:21 PM EDT
== END 2024-08-24 12:02 | disposition home or self-care (01) ==
LOC: HO.HMCH 11:21
PROVIDERS: PCP Internal Medicine
DX: H93.13 Tinnitus, bilateral (principal); R42 Dizziness and giddiness; R26.89 Other abnormalities of gait and mobility

== ENCOUNTER → 2024-08-24 11:21 | Outpatient (BNVA) | payer OTHER, SELFPAY | PROVIDERS: PCP Internal Medicine ==

== ENCOUNTER 2024-10-03 14:13 | Outpatient (AMB) | payer OTHER, SELFPAY ==
--- OUTSIDE RECORDS SUMMARY | 2023-07-06 10:00 | XMS_ITS ---
Author Organization [facility] Address [address] [place] [id number] Care Team Providers Care Pest Controller Assistant Name Role Phone Cristofer Deng MD Primary Care Provider Michael Ya [phone] REASON FOR VISIT Patient presents today for abdominal pain Encounters Encounter Location Date Provider Diagnosis [facility] [address] [facility] [address] [place] [phone] 07/06/2023 Michael Pelletier Plan Of Treatment No Information Progress Notes * BRITTANEY ANDRE MDDOB:[birth year] (79 yo M)Acc No.[id number]:07/06/2023 Progress Notes Patient: BRITTANEY BRITO MD Provider: Raysa Pelletier MD :1945 A ge:78 Y S ex:Male Date:07/06/2023 Address:[address] [place], [place] [id number] Pcp:Cristofer Deng MD Subjective: * Chief Complaints: * 1 . Patient presents today for abdominal pain. * Medical History: Objective: * Vitals: Assessment: Plan: * Treatment: * * The named appointment provid er may or may not be the originator of this progress note, and it is not deemed complete until electronically signed by the appointment provider. Sign off status: Pending * Provider: Raysa Pelletier MD Date: 07/06/2023 Generated for Toni pacheco/Clifford/eTransmitting on: 10/03/2024 02:55 PM EDT
[2024-10-03 14:22] VITALS: BP 130/62; PULSE 63; O2SAT 98; BMI 23.8
--- NOTE | 2024-10-03 14:22 | MHC.PC.OV ---
Vital Signs 10/03/24 14:22 Height 5 ft 9 in Weight 161 lb 2 oz BMI 23.8 BP 130/62 Blood Pressure Location Lt brachial Position Sitting Pulse 63 Pulse Source Pulse Oximeter Pulse Oximetry (%) 98 Oxygen Delivery Method Room Air Intake Visit Reasons: Transfer Care from Dr. Deng 6m f/u Occupational Hygienist Required: No Accompanied by: Self / Same As Patient Allergies morphine (MORPHINE) Adverse Reaction (Intermediate, Verified 10/03/24 14:29) N/V, shortness of breath sulfamethoxazole (From BACTRIM) Adverse Reaction (Intermediate, Verified 10/03/24 14:29) N/V trimethoprim (From BACTRIM) Adverse Reaction (Intermediate, Verified 10/03/24 14:29) N/V Sulfa (Sulfonamide Antibiotics) Adverse Reaction (Unknown, Verified 10/03/24 14:29) nausea and vomiting Medication List - Last Reconciled 10/03/24 by Link Mccollum MD doxepin 6 mg PO BEDTIME PRN famotidine 20 mg PO DAILY lorazepam 1.5 mg (3 x 0.5 mg) PO BEDTIME PRN temazepam 15 mg PO BEDTIME PRN Tobacco use date assessed: 10/03/24 Fall risk assessment: No Falls in past year Last assessed Fall Risk: 10/03/24 Dental Screening Dental Screen Date: 10/03/24 Did you have a dental visit in the last 12 months?: Yes Did you have a dental problem in the last 6 months where you did not have access to dental care?: No Was dental information given to patient?: Patient has dentist HPI Transfer Care from [facility] f/u HPI Details Patient comes in today for his follow up visit - is transferring over from Dr. Deng, who retired from the practice a few months ago States that he still has on and off dizziness/vertigo, which he feels are mostly positional or orthostatic He is scheduled for a head CT and also for vestibular rehab early next month - vestibular rehab was ordered by Dr. Okeefe States that he was also experiencing increased tinnitus (predominantly left-sided) back around the 14 of September and found out later that he had a cracked tooth on one of his left lower molars States that this has been addressed and his tinnitus has subsided a lot He has also been experiencing frequent low back pain, with occasional radiation of pain down his right leg, mostly with prolonged walking Notes that his low back pain often keeps him from being able to do some things lately that he used to enjoy doing, but he has learned to live with this recently He also continues to struggle with his sleep but his current Rx help He denies any headaches Denies any chest pains, no SOB No nausea/vomiting, no abdominal pain No change in bowel habits noted PFSH Medical History Lumbar degenerative disc disease Lumbar radiculopathy Prostate cancer Current use of anticoagulant therapy Surgical History History of prostatectomy History of cholecystectomy Social History Housing: House Alcohol intake: current Alcohol intake frequency: 0-2 drinks per day Alcohol type: beer Patient Tobacco Use Status: Never used Tobacco Tobacco use type: Cigarette e-Cigarette/Vaping Use: Never Used Second Hand Smoke Exposure: No service: No Current occupational status: retired Cognitive needs: No Hearing needs: No Vision needs: Yes (Glasses) Questionnaire PHQ-9 Over the last 2 weeks, how often have you been bothered by any of the following problems? 1. Little interest or pleasure in doing things: several days 2. Feeling down, depressed, or hopeless: several days 3. Trouble falling or staying asleep, or sleeping too much: more than half the days 4. Feeling tired or having little energy: several days 5. Poor appetite or overeating: not at all 6. Feeling bad about yourself - or that you are a failure or have let yourself or your family down: not at all 7. Trouble concentrating on things, such as reading the newspaper or watching television: not at all 8. Moving or speaking so slowly that other people could have noticed. Or the opposite - being so fidgety or restless that you have been moving around a lot more than usual: not at all 9. Thoughts that you would be better off or of hurting yourself in some way: not at all Total score: 5 Depression Screening Interpretation: Positive Depression Screening Follow-up: Follow-up Visit Requested Depression Screening Done: Yes 57295 - PHQ-9 Billing: Yes Source: Developed by Drs. Michael Fontaine, Eliza Cuevas, Nirav Winchester and colleagues, with an educational lavinia from [employer]. Thrive Questionnaire Date Thrive assessed: 10/03/24 I am a: Patient What is your living situation today?: I have a steady place to live Within the past 12 months, did the food you bought not last and you didn't have the money to get more?: Never true Within the past 12 months, did you worry whether your food would run out before you got money to buy more?: Never true Do you have trouble paying for medicines?: No Do you have trouble getting transportation to medical appointments?: No Do you have trouble paying your heating and electricity bill?: No Do you have trouble taking care of your child, family member or friend?: No Do you have trouble with day-to-day activities such as bathing, preparing meals, shopping, managing finances, etc.?: No Are you currently unemployed and looking for a job?: No Are you interested in more education?: No Please select the resources that you would like help with: None Currently or been in a relationship where the following occur: No concerns reported THRIVE Score: 0 AUDIT C Alcohol Use Questionnaire (AUDIT-C) 1. How often do you have a drink containing alcohol?: 4 or more times a week 2. How many drinks containing alcohol do you have on a typical day when you are drinking?: 1 or 2 3. How often do you have six or more drinks on one occasion?: Never Total Score: 4 Score Reviewed/Action Taken: Yes GARY-7 AMB Questionnaire GARY-7 Date GARY - 7 assessed: 10/03/24 Feeling nervous, anxious, or on edge: 0 = Not at all Not being able to stop or control worryin = Not at all Worrying too much about different things: 0 = Not at all Trouble relaxin = Not at all Being so restless that it is hard to sit still: 0 = Not at all Becoming easily annoyed or irritable: 0 = Not at all Feeling afraid as if something awful might happen: 0 = Not at all Total GARY-7 score (0-4 normal; 5-9 mild; 10-14 moderate; 15-21 severe): 0 Source: Developed by Drs. Michael Fontaine, Eliza Cuevas, Nirav Winchester and colleagues, with an educational lavinia from [employer]. Review of Systems Const Denies chills, Reports difficulty sleeping, Reports fatigue, Denies fever(s) and Denies headache(s) ENT Denies dysphagia, Reports dizziness (recurrent), Denies otalgia, Denies headache(s), Denies neck pain, Denies odynophagia, Reports tinnitus and Denies sore throat Card Denies chest pain, Denies palpitations and Denies dyspnea Resp Denies chest congestion, Denies cough and Denies dyspnea GI Denies abdominal pain, Denies constipation, Denies dysphagia, Denies heartburn, Denies diarrhea, Denies nausea, Denies odynophagia and Denies vomiting Denies difficulty urinating, Denies dysuria, Denies nocturia and Denies urinary frequency Musc Reports back pain (over the lower back - chronic), Denies arthralgias and Denies neck pain Skin/Breast Denies rash Neuro Reports dizziness (recurrent) and Denies headache(s) Endo Reports fatigue and Denies palpitations Physical exam (Primary Care) Vital Signs: Last Vital Signs Pulse 63 10/03/24 14:22 BP 130/62 10/03/24 14:22 Pulse Ox 98 10/03/24 14:22 Oxygen Delivery Method Room Air 10/03/24 14:22 BMI result Body Mass Index 23.8 Tobacco/Smoking Status: Tobacco use Status Tobacco use date assessed 10/03/24 10/03/24 14:27 Patient Tobacco Use Status Never used Tobacco 10/03/24 14:27 Tobacco use type Cigarette 10/03/24 14:27 e-Cigarette/Vaping Use Never Used 10/03/24 14:27 PHQ-9: PHQ-9 Score PHQ-9: Total score 5 10/03/24 14:30 Depression Screening Interpretation: Positive Depression Screening Follow-up: Follow-up Visit Requested Thrive Assessment: Date of Thrive Assessment Date Thrive assessed 10/03/24 10/03/24 14:27 Currently or been in a relationship where the following occur: No concerns reported Const General: no acute distress and alert HENMT Ears: TM's normal bilaterally and EAC's normal Throat: Yes posterior oropharynx normal and Yes tonsils normal (no TP congestion) Neck Neck: Yes supple and No lymphadenopathy Thyroid: Thyroid normal Resp Auscultation: clear to auscultation bilaterally, no rales and no wheezes Cardio Rate: regular rate Rhythm: regular rhythm Heart sounds: no murmurs GI Palpation (GI): Soft to palpation and nontender Auscultation: normal bowel sounds General: Yes no CVA tenderness Back/Spine/Pelvis Back: no CVA tenderness Thoracic/Lumbar Spine: lumbar spinal tenderness Skin Rashes: no rashes Extrem General: Yes no clubbing, cyanosis or edema Coding Level of Care Code Est Pt Level 4 (45236) Diagnoses Vertigo R42 Degeneration of intervertebral disc of lumbar region with discogenic back pain M51.360 Disc-related pain type: discogenic back pain only Insomnia, unspecified type G47.00 Insomnia type: unspecified Additional Codes PHQ-9 - 49479 - PHQ-9 Billing: Yes ([id number]) Assessment & Plan Assessment & Plan (1) Vertigo: Code(s): R42 - Dizziness and giddiness Category: Medical Plan: (+) tinnitus, although he reports that this has subsided a lot since his dental issue (cracked tooth) was addressed He is currently scheduled for a head CT early next month for further evaluation (2) Lumbar degenerative disc disease: Code(s): M51.369 - Other intervertebral disc degeneration, lumbar region without mention of lumbar back pain or lower extremity pain Category: Medical Qualifiers: Disc-related pain type: discogenic back pain only Qualified Code(s): M51.360 - Other intervertebral disc degeneration, lumbar region with discogenic back pain only Plan: Lumbar spine MRI done back in May 2023 revealed (+) interval left hemilaminectomy at L4-L5 with associated left paraspinal musculature denervation edema. Interval improvement in previously visualized moderate canal stenosis at L4-L5. Increased [id number] right neural foraminal stenosis at L4-L5 with exiting nerve root impingement and additional multilevel degenerative changes appear comparable to prior including moderate canal stenosis at L2-L3 Reinforced activity and weight-lifting restrictions to avoid aggravating his low back pain (3) Insomnia: Code(s): G47.00 - Insomnia, unspecified Category: Medical Qualifiers: Insomnia type: unspecified Qualified Code(s): G47.00 - Insomnia, unspecified Plan: Sleep hygiene reinforced Continue Temazepam 15 mg Q HS PRN, Doxepin 6 mg Q HS PRN and Lorazepam 1.5 mg Q HS PRN Plan Will have patient get some follow up labs done in a few months Follow up in 6 months Orders: Orders Complete Blood Count Auto Diff 12/26/24 D64.9 - Anemia, unspecified Comprehensive [place]. Panel Fast 12/26/24 E78.00 - Pure hypercholesterolemia, unspecified Prostate Specific Antigen 12/26/24 N40.0 - Benign prostatic hyperplasia without lower urinary tract symptoms Vitamin D 25-OH Total 12/26/24 E55.9 - Vitamin D deficiency, unspecified UA CC w/rflx Micro + Cult 12/26/24 R30.0 - Dysuria TSH reflex Free T4 12/26/24 E78.00 - Pure hypercholesterolemia, unspecified Lipid Panel 12/26/24 E78.00 - Pure hypercholesterolemia, unspecified Vitamin B12 and Folate 12/26/24 E53.8 - Deficiency of other specified B group vitamins
== END 2024-10-03 14:45 | disposition home or self-care (01) ==
LOC: HO.HMCH 14:14
PROVIDERS: PCP Internal Medicine; Visit Provider Internal Medicine
DX: R42 Dizziness and giddiness (principal); M51.360 Other intervertebral disc degeneration, lumbar region with discogenic back pain only; G47.00 Insomnia, unspecified

== ENCOUNTER → 2024-10-03 14:13 | Outpatient (BNVA) | payer OTHER, SELFPAY | PROVIDERS: PCP Internal Medicine; Visit Provider Internal Medicine | DX: M51.360 Other intervertebral disc degeneration, lumbar region with discogenic back pain only (principal); R42 Dizziness and giddiness; G47.00 Insomnia, unspecified | CPT/HCPCS: 96127 ==

== ENCOUNTER 2024-11-05 13:49 | Outpatient (RCR) | payer OTHER, SELFPAY ==
[2024-10-16 15:02] VITALS: BP 157/71
--- NOTE | 2024-10-16 18:05 | MHC.PT.EP ---
[facility] [place] Office [place] Office [place] Office [address] [phone] F: [phone] F: [phone] F: [phone] F: [phone] Physical Therapy Plan of Care Date of Evaluation: 10/16/24 Date of Surgery: Diagnosis: Vertigo Vestibular Rehab Assessment: Pt is a pleasant and motivated 79yo M who presents to PT with dizziness. He presents to PT with current impairments in dizziness, decreased balance, and impaired gait. He is limited functionally by looking down, rolling to L side, and looking up quickly. He scored a 21/24 on DGI with most difficulty ambulating with horizontal head turns. His signs and symptoms may be consistent with vestibular hypofunction however he will continued to be reassessed for BPPV. He is recommended to be seen 2x/week for 4 weeks and will be reassessed Frequency and Duration: The patient will be seen 2x/week for 4 weeks Short Term Goals: Pt continue to test negative for BPPV Pt will demonstrate ability to roll without dizziness or instability Shoe Repairer Goals: Pt will demonstrate ability to bend/squat to the ground without dizziness or instability Pt will demonstrate ability to ambulate with horizontal head turns without dizziness or instability Treatment Plan: Modalities to reduce pain, spasms and effusion. Manual therapy to restore motion and function. Therapeutic exercise to improve strength and flexibility. Neuromuscular re-education for posture and balance. Therapeutic activities to return to functional activities of daily living. Electronically signed by: Julissa Cordero, PT, DPT Please sign and return to therapist. Thank you for your referral.
--- NOTE | 2025-01-15 10:40 | MHC.PT.DC ---
[facility] [place] Office [place] Office [place] Office [address] [phone] F: [phone] F: [phone] F: [phone] F: [phone] Physical Therapy Discharge Report Diagnosis: Vertigo Vestibular Rehab Date of Surgery: Date of Evaluation: 10/16/24 Date of Discharge: 01/15/25 Treatments to Date: 3 Cancellations to Date: 2 No Shows to Date: Discharge Status: Improved Function Independent with HEP Discharge Summary: Pt was seen for skilled PT from 10/16/24-11/05/24. His last attended and scheduled appointment was on 11/05/24. He is being D/C from skilled PT as he has not attended or called to schedule in > 30 days. 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 Session started with ambulation with head turns. He presented with mild imbalance in the first round however as we kept working on it no imbalance noted. He was challenged with body turns and spencer bag searches requiring him to look side to side and up and down and no LOB noted with this either. Overall Dr. Smallwood is progressing well. He would benefit from continuing dynamic balance exercise at home safely (as demonstrated in last session). He was advised to return to PT in case of lack of improvement of symptoms. Dr. Smallwood was in agreement with the plan. Electronically signed by: Julissa Ramirez, PT, DPT Please sign and return to therapist. Thank you for your referral.
== END 2025-01-15 10:39 | disposition home or self-care (01) ==
LOC: HO.PT 13:49
PROVIDERS: PCP Internal Medicine; Visit Provider Otolaryngology
DX: H81.4 Vertigo of central origin (principal)
CPT/HCPCS: 95992; 97112; 97162

== ENCOUNTER 2024-12-11 15:52 | Outpatient (REF) | payer OTHER, SELFPAY ==
--- OUTSIDE RECORDS SUMMARY | 2023-07-06 10:00 | XMS_ITS ---
Author Organization [facility] Address [address] [place] [phone] Care Team Providers Care Secondary Connector Armature Name Role Phone Cristofer Deng MD Primary Care Provider Michael Ya [phone] REASON FOR VISIT Patient presents today for abdominal pain Encounters Encounter Location Date Provider Diagnosis [facility] [address] [facility] [address] [place] [phone] 07/06/2023 Michael Pelletier Plan Of Treatment No Information Progress Notes * BRITTANEY ANDRE MDDOB:[birth year] (79 yo M)Acc No.[id number]:07/06/2023 Progress Notes Patient: BRITTANEY BRITO MD Provider: Raysa Pelletier MD :1945 A ge:78 Y S ex:Male Date:07/06/2023 Address:[address] [place], [place] [id number] Pcp:Cristofer Deng MD Subjective: * Chief Complaints: [...] Pending * Provider: Raysa Pelletier MD Date: 0 07/06/2023 Generated for Toni pacheco/Clifford/eTransmitting on: 0 12/11/2024 05:00 PM EDT
--- NOTE | ~2024-12-11 | CT_ITS ---
EXAMINATION: CT HEAD WITHOUT CONTRAST CLINICAL INFORMATION: Other abnormalities of the and mobility. COMPARISON: None available. TECHNIQUE: Contiguous axial imaging was performed from the skull base to vertex without intravenous administration of contrast. This CT examination was performed using dose optimization techniques as appropriate, variously including the following: *Automated exposure control *Adjustment of mA and/or kV according to patient size (this includes techniques or standardized protocols for targeted exams where dose is matched to indication/reason for exam; i.e. extremities or head) *Use of iterative reconstruction technique DLP: 842. FINDINGS: There is no acute intra-axial, extra-axial bleed, masses or midline shift. There is no acute infarction evolution. There is noted edema. The zaidi to white matter differentiation is maintained normal. The lateral ventricles are symmetrical in size and configuration without enlargement. Bone windows reveal no calvarial abnormality. Bilateral paranasal sinuses and mastoid air cells are well-aerated. No scalp soft tissue swelling seen. CT/CT head/brain wo IV con IMPRESSION: No acute intracranial process seen. Electronically signed by: Ramon Bowens MD 12/12/2024 07:19 AM EDT
--- OUTSIDE RECORDS SUMMARY | 2024-12-11 17:00 | XMS_ITS | Patient Health Record ---
Author Organization [facility] Address [address] [place] [id number] Care Team Providers Care Warp Spinner Name Role Phone Cristofer Deng MD Primary Care Provider Jillian brewer PelletierMichael Unavailable [phone] Allergies No Known Allergies Reason For Referral [...] Problem Status W/U Status Risk Notes Problem [id number] Epigastric abdominal pain (R10.13) Active confirmed Problem 481005964 Abdominal bloating (R14.0) Active confirmed Problem 91455453 Weight loss (R63.4) Active confirmed Problem 832849441 Shortness of breath (R06.02) Active confirmed Problem 651503337 Early satiety (R68.81) Active confirmed Problem 173325076 RUQ abdominal pain (R10.11) Active confirmed Problem Generalized abdominal pain (139504358) Abdominal pain, acute, generalized (R10.84) Active confirmed Problem 909623773 Pneumonia of right lower lobe due to infectious organism (J18.1) Active confirmed Plan Of Treatment Pending Test Test Name [...] Insured Coverage Start Date Coverage End Date [facility] [address] [facility] [place] [phone] [id number] BRITTANEY ANDRE Self - patient is the insured Medical (General) History Medical History History ICD Code Negative colonoscopies in 1994, 2000, an d on 01-31-2006 and 2014 Sigmoid diverticulosis Denies ND,DM,CVA,Lung disease,renal dise ase Prostate Cancer 2011--surgery as below Neg. abdominal ultrasound in 2017 Negative H. pylori serology and negative H. pylori stool test in 2018 Negative EGD in 01/2019 Pulmonary embolus in [address] and U/S in 2021 Negative Cologuard test in 2022 Surgical History Surgery Date(Month/Year) Lap. prostatectomy for cancer 05/2015 Basal cell skin cancers x 6 Back surgery [facility]--L4 foraminencto my-Dr. Badillo 04/14/2022 CCY for acalculous cholecystitis 2018 back surgery 05/06
== END 2024-12-11 15:53 | disposition home or self-care (01) ==
LOC: HO.CT 15:52
PROVIDERS: PCP Internal Medicine
DX: R26.89 Other abnormalities of gait and mobility (principal); R42 Dizziness and giddiness; H93.13 Tinnitus, bilateral; R29.818 Other symptoms and signs involving the nervous system
CPT/HCPCS: 70450

== ENCOUNTER → 2024-12-11 15:54 | Outpatient (BNV) | payer OTHER, SELFPAY | PROVIDERS: PCP Internal Medicine; Visit Provider Radiology Diagnostic Radiology | DX: R26.89 Other abnormalities of gait and mobility (principal) | CPT/HCPCS: 70450 ==

== ENCOUNTER 2025-02-01 11:32 | Outpatient (REF) | payer OTHER, SELFPAY ==
--- OUTSIDE RECORDS SUMMARY | 2025-02-01 12:23 | XMS_ITS | Patient Health Record ---
Author Organization [facility] Address [address] [place] [phone] Care Team Providers Care Lodging Facilities Attendant Name Role Phone Cristofer Deng MD Primary Care Provider Michael Ya [phone] Allergies No Known Allergies Reason For Referral No Information Medications Medication SIG (Take, Route, Frequency, Duration) Notes Start Date End Date Status Temazepam 15 MG Capsule (Schedule IV Drug) TAKE ONE CAPSULE BY MOUTH AT BEDTIME NEEDED FOR 30 DAYS Oral; Duration: 30 Active Reglan 5 MG Tablet take 1 or 2 tablets Orally Every 6 hours as needed for abdominal bloating and discomfort; Duration: 30 day(s) 01/05/2023 Not-Taking/PRN Famotidine 20 MG Tablet 1 tablet at bedtime as needed Orally Once a day; Duration: 30 day(s) Active Doxepin HCl 10 MG Capsule 1 capsule at bedtime Orally Once a day; Duration: 30 day(s) Active Immunizations Vaccine Route Administration Date Status Comme nts Influenza Unknown 12/18/2018 Administered Influenza Unknown 02/11/2022 Administered Social History Social History Additional Details Category Social Info Options Details Miscellaneous: Marital status: 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 Section Notes: Nonsmoker; no sig alcohol Nonsmoker; no sig alcohol Nonsmoker; no sig alcohol Nonsmoker; no sig alcohol Nonsmoker; no sig alcohol Nonsmoker; no sig alcohol Problems Problem Type SNOMED Code ICD Code Onset Dates Problem Status W/U Status Risk Notes Problem Epigastric pain (74487457) Epigastric abdominal pain (R10.13) Active confirmed Problem Abdominal bloating (742852498) Abdominal bloating (R14.0) Active confirmed Problem Weight loss (777804963) Weight loss (R63.4) Active confirmed Problem Shortness of breath (473449357) Shortness of breath (R06.02) Active confirmed Problem Early satiety (549119173) Early satiety (R68.81) Active confirmed Problem Right upper quadrant pain (374618953) RUQ abdominal pain (R10.11) Active confirmed Problem Generalized abdominal pain (256261659) Abdominal pain, acute, generalized (R10.84) Active confirmed Problem Pneumococcal pneumonia (117283485) Pneumonia of right lower lobe due to infectious organism (J18.1) Active confirmed Plan Of Treatment Pending Test Test Name Order Date CHEM 7 PROFILE 12/22/2021 LIVER PROFILE 12/22/2021 AMYLASE 01/08/2019 LIPASE 01/08/2019 CRP 01/08/2019 CRP 01/14/2022 CBC w DIFF 01/14/2022 CBC w DIFF 12/22/2021 CBC with MANUAL DIFFERENTIAL 01/08/2019 SED RATE [...] Insured Coverage Start Date Coverage End Date [facility] [address] [facility] [place] [phone] [id number] BRITTANEY ANDRE Self - patient is the insured Medical (General) History Medical History History ICD Code Negative colonoscopies in 1994, 2000, an d on 01-31-2006 and 2014 Sigmoid diverticulosis Denies ME,DM,CVA,Lung disease,renal dise ase Prostate Cancer 2011--surgery as below Neg. abdominal ultrasound in 2017 Negative H. pylori serology and negative H. pylori stool test in 2017 Negative EGD in 01/2019 Pulmonary embolus in [address] and U/S in 2021 Negative Cologuard test in 2022 Surgical History Surgery Date(Month/Year) Lap. prostatectomy for cancer 05/2015 Basal cell skin cancers x 6 Back surgery - [facility]--L4 foraminencto my-Dr. Badillo 04/14/2022 CCY for acalculous cholecystitis 2018 back surgery 05/06
[2025-02-01 13:14] LABS: Appearance Urine Clear; Glucose Urine UA Negative (Negative); PH 7.0 (5.0-9.0); Specific Gravity - Urine 1.015 (1.005-1.025)
[2025-02-01 13:59] LABS: MANUAL DIFF FLAG NO
[2025-02-01 14:16] LABS: Hematocrit 45.7 % (42.0-52.0); Hemoglobin 15.1 g/dl (14.0-18.0); Imm Gran Abs Auto 0.01 X10*3/uL (0.00-0.03); Imm Gran Pct Auto 0.1 % (0.0-0.4); Lymphocytes Absolute Auto 1.7 X10*3/uL (1.2-4.9); Mean Corpuscular HGB Conc 33.0 g/dl (31.0-36.0); Mean Corpuscular Hemoglobin 31.3 pg (27.0-33.0); Mean Corpuscular Volume 94.6 fL (80.0-98.0); NRBC Abs Auto 0.000 X10*3/uL (0.0-0.012); NRBC Pct Auto 0.0 /100WBC (0.0-0.2); Platelet Count 267 X10*3/uL (160-400); Red Blood Count 4.83 X10*6/uL (4.60-5.80); White Blood Count 7.3 X10*3/uL (4.8-10.8)
[2025-02-01 14:40] LABS: Alanine Aminotransferase 17 U/L (0-40); Albumin Level 4.3 g/dL (3.5-5.0); Alkaline Phosphatase 77 U/L (39-117); Anion Gap 10 (12-20); Aspartate Amino Transferase 33 U/L (5-37); Blood Urea Nitrogen 17 mg/dL (9-16); Calcium 9.5 mg/dL (8.4-10.2); Carbon Dioxide 29 mmol/L (22-29); Chloride 107 mmol/L (96-108); Cholesterol 197 mg/dL (<200); Estimated Glomerular Filt Rate 56; HDL Cholesterol 46 mg/dL (>40); Potassium 4.3 mmol/L (3.3-5.1); Sodium 142 mmol/L (135-145); Total Protein 6.8 g/dL (6.5-8.0); Triglycerides 145 mg/dL (<150)
[2025-02-01 15:12] LABS: Folate 12.1 ng/mL (> or = 4.0); Prostate Specific Antigen 0.65 ng/mL (<0.05-4.0); Vitamin B12 215 pg/mL (200-900)
== END 2025-02-01 11:33 | disposition home or self-care (01) ==
LOC: HO.10HDL 11:32
PROVIDERS: Referring Provider Urology; Visit Provider Internal Medicine
DX: C61 Malignant neoplasm of prostate (principal); E78.00 Pure hypercholesterolemia, unspecified; E55.9 Vitamin D deficiency, unspecified; R30.0 Dysuria; D64.9 Anemia, unspecified; N40.0 Benign prostatic hyperplasia without lower urinary tract symptoms; E53.8 Deficiency of other specified B group vitamins; Z12.5 Encounter for screening for malignant neoplasm of prostate
CPT/HCPCS: 36415; 80053; 80061; 81003; 82306; 82607; 82746; 84153; 84443; 85025